=== PATIENT | male | born 1955 | race Caucasian/White ===

== ENCOUNTER → 2016-10-28 | Outpatient (CLI) | payer BC, OTHER | LOC: RT 13:22 | PROVIDERS: ATTEND Internal Medicine | DX: R06.02 Shortness of breath (principal) ==

== ENCOUNTER 2016-11-11 16:35 | Inpatient (IN) | payer BC, OTHER ==
[2016-11-11] MEDS ORDERED: Sodium Chloride 0.9% 1,000 ML PRIMARY IV ONE (16:45)
[2016-11-11] MEDS ORDERED: NORMAL SALINE 10 ML SYRINGE FLUSH IVP PRN (16:45)
[2016-11-11 17:17] LABS: BASOPHILS # (AUTO) 0.02 10*3/UL; BASOPHILS % (AUTO) 0.2 % (0-1); EOSINOPHILS % (AUTO) 0.5 % (0-8); HEMATOCRIT 35.2 % (42.0-52.0); HEMOGLOBIN 10.9 g/dL (14.0-18.0); IMM GRAN % (AUTO) 0.4 % (0-5); IMM GRAN# (AUTO) 0.04 10*3/UL; LYMPHOCYTES # (AUTO) 1.11 10*3/uL; MEAN PLATELET VOLUME 9.1 FL (7.4-12.2); MONOCYTES # (AUTO) 0.74 10*3/UL (0.3-0.8); NEUTROPHILS # (AUTO) 7.27 10*3/UL; NEUTROPHILS % (AUTO) 78.9 % (50-80); RED BLOOD COUNT 3.63 10^6/uL (4.70-6.10); WHITE BLOOD COUNT 9.23 10^3/uL (4.8-10.8)
[2016-11-11 17:19] LABS: PLATELET MORPHOLOGY COMMENT NORMAL MORPHOLOGY (NORM)
[2016-11-11 17:32] LABS: ASPARTATE AMINO TRANSFERASE 43 IU/L (21-57); BILIRUBIN,TOTAL 0.4 mg/dL (0.3-1.2); BLOOD UREA NITROGEN 21 mg/dL (7-22); C-REACTIVE PROTEIN 1.5 mg/dL (0.0-0.9); CALCIUM 9.3 mg/dL (8.7-10.7); CHLORIDE 94 meq/L (98-112); CREATININE 0.6 mg/dL (0.70-1.50); EST GLOMERULAR FILTRATION > 60 (>60 ml/min/1.73m(2)); GLUCOSE 120 mg/dL (78-110); POTASSIUM 4.2 meq/L (3.8-5.2); SODIUM 136 meq/L (135-145); TOTAL PROTEIN 6.7 g/dL (6.1-8.0)
--- NOTE | 2016-11-11 18:17 | DI ---
AP CHEST X-RAY, 11/11/2016 4:45 PM : Clinical History: Cough. Hypoxia. Previous Exam: 09/09/2016. On this projection, the patient took a shallow inspiration. There is no acute soft tissue or bony abn ormality. Heart size is normal for this projection and inspiratory effort. There is some atelectasis in the left lower lobe. The patient is status post partial right lobectomy with shift of the mediasti num from left to right and with compensatory hyperinflation of the left lung. There is increased dens ity behind the right heart but this is felt to be secondary to the slight rotation of the patient so that he is facing toward the right side and the densities represent the lower lobe vessels. There has been no significant interval change. Readin. No acute infiltrate or effusion is present. 2. Status post partial right lobectomy with compensatory hyperinflation of the left lung.
[2016-11-11] MEDS ORDERED: methylPREDNISolone 125 MG/2 ML VIAL IVP ONE (18:22)
[2016-11-11] MEDS ORDERED: Levofloxacin 750mg (Premix) 750 MG in Dextrose 1 BAG IV ONE (18:22)
[2016-11-11] MEDS ORDERED: IBUPROFEN 800 MG TABLET PO PRN (18:57)
[2016-11-11] MEDS ORDERED: LET SOLUTION 40MG/0.5MG/5MG/ML - 3 ML TOPICAL PRN (18:57)
[2016-11-11] MEDS ORDERED: ONDANSETRON 4 MG/2 ML VIAL IVP PRN (18:57)
[2016-11-11] MEDS ORDERED: IPRATROPIUM/ALBUTEROL SULFATE 3 ML NEB NEB PRN (18:57)
[2016-11-11] MEDS ORDERED: ALBUTEROL SULFATE 2.5 MG/3 ML NEB PRN ×2 (18:57→20:13)
--- NOTE | 2016-11-11 19:36 | PDOC ---
Dyspnea HPI - General Chief Complaint: Respiratory Complaint Stated Complaint: INCREASED SHORTNESS OF BREATH/COUGH x3 DAYS Date Seen by Provider: 11/11/16 Time Seen by Provider: 16:40 Source: POSITIVE: Patient Exam Limitations: POSITIVE: No limitations Treatment Prior to Arrival: REPORTS: Oxygen, Other (Duo neb at home one hour prior to arrival) Nurse's Notes Reviewed & Considered: Yes - History of Present Illness Initial Comments: The patient is a 61-year-old male with a history of COPD as well as history of lung cancer who presents to the emergency department with increased shortness of breath. He is on 4 L baseline oxygen at home. His oxygen saturations a past couple of days have been low with even minimal activity or talking. He reports increase shortness of breath worsening over the past couple of weeks and particularly worse over the past for 5 days. He also has had increase in productive cough which is productive of brownish colored phlegm. He has associated general malaise although he denies any specific fevers or chills. He is not have any chest pain, increased edema or any other associated complaints. He is on baseline prednisone of 20 mg a day and attempts to wean lower have not been successful. In addition he does take Zithromax as a prophylactic antibiotic every other day. - Patient Home Medications Home Medications: Home Medications Ibuprofen [Motrin] 800 mg PO TID PRN 03/21/11 Multivitamin [Multi-Day Vitamins] 1 each PO DAILY 04/25/11 Bupropion HCl [Wellbutrin Sr] 150 mg ORAL BID tab 06/04/11 Gabapentin 300 mg PO BID 09/17/11 Methadone HCl 5 mg PO BID 09/17/11 Oxycodone HCl 20 mg ORAL q four hours tab 09/17/11 Oxycodone HCl [Oxycontin] 30 mg PO BID 09/17/11 Celecoxib [Celebrex] 200 mg PO DAILY 07/20/15 Albuterol Sulfate [Proair Hfa] 1 - 2 puff INH Q4-6H PRN #3 inhaler 02/13/16 Budesonide/Formoterol Fumarate [Symbicort] 2 puff INH BID #3 inh 02/13/16 Tiotropium [place] [Spiriva] 1 puff INH DAILY inh 04/28/16 Furosemide 1 tab PO q mid AM #90 tab 05/25/16 Lidocaine HCl [Lidocaine Hcl Viscous] 15 ml PO Q4H PRN #3 ml 05/25/16 Ondansetron HCl [Zofran] 1 tab PO Q8H PRN #30 tab 05/25/16 Albuterol/Ipratrop Neb Soln [Duoneb Neb Soln] 1 vial INH Q4-6HRSPRN #120 box Omeprazole 1 cap PO BID #60 cap 10/26/16 Fluoxetine HCl [Prozac] 1 cap ORAL QD #0 capsule 10/27/16 Venlafaxine HCl [Venlafaxine Hcl Er] 1 tab PO DAILY #0 cap 10/27/16 predniSONE Tab [Deltasone Tab] 2 tab PO DAILY #60 tab 10/29/16 Potassium Chloride 1 tab PO q mid AM #90 tab 11/06/16 - Patient Allergies Allergies/Adverse Reactions: Allergies Allergy/AdvReac Type Severity Reaction Status Date / Time Benzodiazepines Allergy Intermediate NOT Verified 11/11/16 17:02 APPLICABLE cyclobenzaprine HCl AdvReac Intermediate HALLUCINATI Verified 11/11/16 17:02 [From Flexeril] ONS pregabalin [From Lyrica] AdvReac Intermediate SWELLING Verified 11/11/16 17:02 Past Medical History - heen HEENT History: Denies History, Hard of Hearing, Chipped or Loose Teeth Cardiovascular History: Hypertension, Hyperlipidemia Respiratory History: Asthma, COPD, Shortness of Breath, Sleep Apnea, Home CPAP Use, Snoring, Other (please comment) Additional Respiratory History: 3L O2 WITH CPAP. LUNG CANCER RIGHT UPPER LOBE, RIGHT UPPER LOBECTOMY Gastrointestinal History: GERD, Other (please comment) Additional Gastrointestinal History: BARRETTS ESOPHAGUS Genitourinary History: Denies History Endocrine History: Denies History Musculoskeletal History: Back Pain, Back Injury, Muscle Weakness, Paralysis Prosthesis or Implant: Yes (HARDWARE IN BACK SPINAL STIMULATOR L BUTTOCK) Additional Musculoskeletal History: HAS NUMBNESS WEAKNESS IN R LEG AND FOOT / DROP FOOT RIGHT SIDE, DUE TO BACK SURGERY Neurological History: Denies History Blood Disorders: Denies History Psychiatric History: Depression, Anxiety Disorders, PTSD Additional Psychiatric History: HX ALCOHOLISM History of Sexually Transmitted Diseases: No Cancer History: Lung Cancer Treatment / Date(s) of Treatment: R UPPER LOBECTOMY WITH 4 CHEMO TX'S In Past Year Been Physically Harmed or Verbally Threatened: No History of MDRO: No History of Other Communicable Diseases: No Tobacco Use: Former Smoker Alcohol Use: Sober Substance Use Type: None Previous Surgical History: Yes Type / Date of Surgery: LAMINECTOMY/R UPPER LOBECTOMY/VERTEBRAL FUSION/3 NECK FUSIONS/TONSILS/KAUSHIK/BILAT KNEE SCOPES Anesthesia Reactions: Yes (HYPOTENSIVE) Malignant Hyperthermia: No Significant Family History: Asthma, COPD, Lung disease, Vascular disease Past Medical History Reviewed: Reviewed - No Changes ROS - Limitations ROS Limitations: No Limitations Constitution: DENIES: Chills, Fever Cardiovascular: REPORTS: Denies Cardiac Symptoms Respiratory: REPORTS: Cough Productive, Shortness Of Breath, Wheezing Neurological: REPORTS: Denies Neuro Symptoms Gastrointestinal: REPORTS: Denies GI Symptoms, Other (He does report recent increase in difficulty swallowing, he also does have a history of aspiration of thin liquids on previous evaluations here in the hospital) Musculoskeletal: REPORTS: Denies MS Symptoms Eyes: REPORTS: Denies Symptoms ENT: REPORTS: Denies Symptoms Skin: DENIES: Rash Dyspnea Physical Exam - General Appearance General Appearance: REPORTS: Alert, Cooperative, No Acute Distress, Anxious - HEENT HEENT: POSITIVE: Head Inspection Nml, Eyes Inspection Nml, Ears Inspection Nml, Nose Inspection Nml, PERRL, EOMI - Respiratory Respiratory: REPORTS: Other (The patient has tachypnea with increased work of breathing on arrival, he has to take breaks to breathe when talking, his breath sounds are diminished bilaterally) - Cardiovascular Cardiovascular: REPORTS: Regular Rate and Rhythm, Heart Sounds Normal Peripheral Pulses: Dorsalis-pedis (R): 2+, Dorsalis-pedis (L): 2+ - Abdomen Abdomen: Soft: (All Quadrants), Denies Tenderness: (All Quadrants), No Distention: (All Quadrants) - Skin Skin: REPORTS: Intact, No Rash - Extremities Extremity: Normal ROM: (All Extremities), Normal Inspection: (All Extremities) - Neurological / Psychological Neurological: POSITIVE: Other (Patient has extrapyramidal motor movements, no focal neurologic deficits) Dyspnea Progress - Results Reviewed by me Xrays/CTs/US Reviewed by me: Yes Discussed with Radiologist: Yes Radiology Findings: Patient has chronic findings on his chest x-ray which do not appear significantly different than previous per radiology reading. Lab Results Reviewed: Yes Lab Results:: Laboratory Results 11/11/16 11/11/16 Range/Units 17:07 17:20 WBC 9.23 (4.8-10.8) 10^3/uL RBC 3.63 L (4.70-6.10) 10^6/uL Hgb 10.9 L (14.0-18.0) g/dL Hct 35.2 L (42.0-52.0) % MCV 97.0 H (80-90) FL MCH 30.0 (27-31) PG MCHC 31.0 L (33-37) g/dL RDW Std Deviation 51.4 H (39-50) fL RDW Coeff of Yumiko 15.0 H (11.5-14.5) % Plt Count 329 (140-350) 10*3/uL MPV 9.1 (7.4-12.2) FL Immature Gran % (Auto) 0.4 (0-5) % Neut % (Auto) 78.9 (50-80) % Lymph % (Auto) 12.0 (10-50) % [place] % (Auto) 8.0 (5-15) % Eos % (Auto) 0.5 (0-8) % Baso % (Auto) 0.2 (0-1) % Immature Gran # (Auto) 0.04 10*3/UL Neut # (Auto) 7.27 10*3/UL Lymph # (Auto) 1.11 10*3/uL [place] # (Auto) 0.74 (0.3-0.8) 10*3/UL Eos # (Auto) 0.05 10*3/UL Baso # (Auto) 0.02 10*3/UL WBC Morphology Comment Normal morphology (NORM) Plt Morphology Comment Normal morphology (NORM) RBC Morph Comment Normal morphology (NORM) VBG pH 7.52 H (7.32-7.42) VBG pCO2 36 L (45-55) mmHg VBG HCO3 30 H (22-26) mmol/L VBG Base Excess 7 H (-2-2) MMOL/L Sodium 136 (135-145) meq/L Potassium 4.2 (3.8-5.2) meq/L Chloride 94 L (98-112) meq/L Carbon Dioxide 34 H (23-33) meq/L Anion Gap 8 (5-20) BUN 21 (7-22) mg/dL Creatinine 0.6 L (0.70-1.50) mg/dL Estimated GFR > 60 (>60 ml/min/1.73m(2)) BUN/Creatinine Ratio 35.00 H (6-20) Glucose 120 H (78-110) mg/dL Calculated Osmolality 285.0 (267-292) mOsm/kg Lactic Acid 1.0 (0.70-2.10) MMOL/L Calcium 9.3 (8.7-10.7) mg/dL Magnesium 2.0 (1.6-2.4) mg/dL Total Bilirubin 0.4 (0.3-1.2) mg/dL AST 43 (21-57) IU/L ALT 44 (21-72) IU/L Alkaline Phosphatase 108 (38-126) IU/L C-Reactive Protein 1.5 H (0.0-0.9) mg/dL NT-Pro-B Natriuret Pep 105 (0-125) PG/ML Total Protein 6.7 (6.1-8.0) g/dL Albumin 3.9 (3.5-4.8) g/dL Globulin 2.8 (2.50-4.10) g/dL Albumin/Globulin Ratio 1.30 (1.3-2.0) mg/g - Patient's Progress MDM / ED Course: Blood cultures and lactate were drawn with initial blood draw. His chest x-ray shows no obvious acute infiltrate per radiology although is significantly abnormal at baseline making it difficult to interpret. Clinically he appears to have COPD exacerbation and likely some degree of aspiration pneumonitis or pneumonia. These findings are discussed with the patient. He is very fragile secondary to his chronic lung condition. He is very symptomatic and oxygen saturations drop with even minimal activity. Decision was made to admit the patient for treatment initially. He was started on Levaquin and Solu-Medrol after discussion with Dr. Everett. These findings and recommendations were discussed with the patient and his . He is in agreement with this plan. - Consult Counseled: POSITIVE: Patient, Family, RE: Lab Results, RE: Radiology Results, RE : DX, RE: Need for F/U Patient Care Time - Estimated PCT Patient Care Time (In Minutes): 40 Vital Signs - Recent Vital Signs Vital Signs: Vital Signs (Last 8 hours) Temp Pulse Pulse Resp BP BP Pulse Ox 11/11/16 18:55 97.1 F 100 18 145/90 96 11/11/16 16:48 94 11/11/16 16:35 97.9 F 110 H 32 H 145/90 82 - VS Reviewed Vital Signs Reviewed: Yes Discharge Clinical Impression: COPD exacerbation, Aspiration into respiratory tract Discharge Disposition: Admit to Inpatient Condition: Fair Date Decision to Admit to Inpatient: 11/11/16 Time Decision to Admit to Inpatient: 18:30
[2016-11-11] MEDS ORDERED: Levofloxacin 750mg (Premix) 750 MG in Dextrose 1 BAG IV SCH (20:00)
--- NOTE | 2016-11-11 20:04 | PDOC ---
History and Physical - History of Present Illness Date and Time of Service: 11/11/2016, 2001 Chief Complaint: Shortness of breath History of Present Illness: This is a 61-year-old male with chronic pain syndrome, failed back syndrome, end -stage COPD, and history of lung cancer with a partial lung resection who presents accompanied by his juliocesar with complaints of shortness of breath. When he last saw his primary care provider he had the same complaints and a plan was laid out to do a chest CT scan and a trial of flutter valve along with incentive spirometer. The patient states that over the last 2 weeks it's been progressively getting worse despite increased breathing therapies in the last 4 days he's actually lost his voice. He thinks he may have aspirated. He has had extensive workup in the past that has shown aspiration. He states that in particular pills are very difficult to swallow now. He does not recall an esophageal stricture. He has known Brice's esophagitis, and states that he generally has an EGD every 3-5 years or so and he states it's been about 5 years so he feels like he might be due for that study here soon. Nothing seemed to be making a much better, and the last time he saw his pulmonary provider at [facility], they recommended that he get in for evaluation for hospitalization anytime he developed a cough. He tried to wait it out over the last 4 days but developed a significant cough today, nonproductive, no carotid for further evaluation. He is normally on 4 L per nasal cannula and he is on that but still feels quite short of breath, and more so than is normal. No fevers, no chills, no chest pain. Past Medical History Medical History: 1. History of lung cancer status post right upper lobe lobectomy and chemotherapy. 2. COPD, this is end-stage. 3. Depression with anxiety, on multiple antidepressants including Effexor, Prozac, and Wellbutrin. 4. Chronic pain syndrome related to failed back syndrome. 5. Right lower extremity foot drop, with chronic right great toe plantar stage IV ulcer, present on admission. 6. Brice's Esophagitis. 7. Steroid dependence Surgical History: 1. Bilateral knee scopes. 2. Bilateral shoulder stones. 3. Right upper lobe lobectomy. 4. Tonsillectomy. 5. Cholecystectomy. 6. Failed back which 3 surgeries in the past Pertinent Family History: Patient denies any diabetes or heart disease in the family. Past Social History: Patient used to smoke, but quit 6 years ago. Quit drinking alcohol in the past. . Has 2 children. 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 Tobacco Use: Former Smoker Substance Use Type: None Alcohol Use: None Medication / Allergies Home Medications: Home Medications Medication Instructions Recorded Confirmed Type Ibuprofen [Motrin] 800 mg PO TID PRN 03/21/11 11/11/16 History Multivitamin [Multi-Day Vitamins] 1 each PO DAILY 04/25/11 11/11/16 History Bupropion HCl [Wellbutrin Sr] 150 mg ORAL BID tab 06/04/11 11/11/16 History Gabapentin 300 mg PO BID 09/17/11 11/11/16 History Methadone HCl 5 mg PO BID 09/17/11 11/11/16 History Oxycodone HCl 20 mg ORAL q four hours tab 09/17/11 11/11/16 History Oxycodone HCl [Oxycontin] 30 mg PO BID 09/17/11 11/11/16 History Celecoxib [Celebrex] 200 mg PO DAILY 07/20/15 11/11/16 History Albuterol Sulfate [Proair Hfa] 1 - 2 puff INH Q4-6H PRN #3 inhaler 02/13/1610/27 Clinic Budesonide/Formoterol Fumarate 2 puff INH BID #3 inh 02/13/16 11/11/16 Clinic [Symbicort] Tiotropium [place] [Spiriva] 1 puff INH DAILY inh 04/28/16 11/11/16 History Furosemide 1 tab PO q mid AM #90 tab 05/25/16 11/11/16 Clinic Lidocaine HCl [Lidocaine Hcl 15 ml PO Q4H PRN #3 ml 05/25/16 11/11/16 Clinic Viscous] Ondansetron HCl [Zofran] 1 tab PO Q8H PRN #30 tab 05/25/16 11/11/16 Clinic Albuterol/Ipratrop Neb Soln 1 vial INH Q4-6HRSPRN #120 box 08/05/16 11/11/16 Clinic [Duoneb Neb Soln] Omeprazole 1 cap PO BID #60 cap 10/26/16 11/11/16 Clinic Fluoxetine HCl [Prozac] 1 cap ORAL QD #0 capsule 10/27/16 11/11/16 [facility] Venlafaxine HCl [Venlafaxine Hcl 1 tab PO DAILY #0 cap 10/27/16 11/11/16 Clinic Er] predniSONE Tab [Deltasone Tab] 2 tab PO DAILY #60 tab 10/29/16 11/11/16 [facility] Potassium Chloride 1 tab PO q mid AM #90 tab 11/06/16 11/11/16 [facility] Allergies/Adverse Reactions: Allergies Allergy/AdvReac Type Severity Reaction Status Date / Time Benzodiazepines Allergy Intermediate NOT Verified 11/11/16 17:02 APPLICABLE cyclobenzaprine HCl AdvReac Intermediate HALLUCINATI Verified 11/11/16 17:02 [From Flexeril] ONS pregabalin [From Lyrica] AdvReac Intermediate SWELLING Verified 11/11/16 17:02 Review of Systems - Review of Systems All Systems: Reviewed & No Additional Complaints Except as Stated (I did a 12 point review systems and it was negative other than that discussed in the history of present illness and that noted below.) - Constitutional Constitutional: REPORTS: General Health Poor - Respiratory Respiratory: REPORTS: Cough, Dyspnea At Rest, Dyspnea with Exertion, See HPI - Cardiovascular Cardiovascular: REPORTS: Other (States that he had symptoms of congestive heart failure in the past and they thought about getting a repeat echocardiogram. Currently does not have symptoms of congestive heart failure. No edema and no swelling.) - Neurological Neurologic: REPORTS: Difficulty Walking (Chronic antalgic gait. This is related to the foot drop. He states that he falls frequently as he just doesn' t know where his right foot is in space. He fractured 4 ribs in the end of August with a fall.), Other - Psychiatric Psychiatric: REPORTS: Anxiety (Had recent changes in his medications to try and help control this better.), Depressed Exam - Vitals Vital Signs: Vital Signs Temperature 97.1 F Temperature Source Temporal Artery Scan Pulse Rate 100 Respiratory Rate 18 Blood Pressure 145/90 Pulse Ox 96 On 4 L per nasal cannula - General General Appearance: POSITIVE: No Acute Distress, Cooperative - Head Head Exam: POSITIVE: Normal Inspection, Normocephalic, Atraumatic - Eye Eye Exam: POSITIVE: No Scleral Icterus - Neck Neck Exam: POSITIVE: Normal Inspection - Respiratory Respiratory Exam: POSITIVE: Breathing Non Labored, Decreased Breath Sounds ( Shallow inspirations with very diminished expiratory breath sounds. Not labored ) - Cardiovascular Cardiovascular Exam: POSITIVE: RRR, No Murmur, No Clicks, No Gallops, No Rubs, No JVD - GI/Abdominal GI/Abdominal Exam: POSITIVE: Normal Bowel Sounds, Non Tender, Non Distended, Soft - Rectal Rectal Exam: POSITIVE: Deferred - External Exam: POSITIVE: Deferred Exam: POSITIVE: Deferred - Extremities Extremities Exam: POSITIVE: No Edema Present, No Cyanosis Present, Clubbing Present - Back Back Exam: POSITIVE: No CVA Tenderness Additional Back Exam Details: Scars from prior back surgeries - Neurological Neurological Exam: POSITIVE: Alert, Oriented x 3, No Facial Droop, Speech Intact / Clear, Abnormal Gait - Psychiatric Psychiatric Exam: POSITIVE: Anxious - Integumentary Integumentary Exam: POSITIVE: Warm, Dry, Intact Results - Labs CBC and BMP: 11/11/16 17:07 11/11/16 17:07 Labs - Last 24 Hours: Laboratory Results 11/11/16 11/11/16 Range/Units 17:07 17:20 WBC 9.23 (4.8-10.8) 10^3/uL RBC 3.63 L (4.70-6.10) 10^6/uL Hgb 10.9 L (14.0-18.0) g/dL Hct 35.2 L (42.0-52.0) % MCV 97.0 H (80-90) FL MCH 30.0 (27-31) PG MCHC 31.0 L (33-37) g/dL RDW Std Deviation 51.4 H (39-50) fL RDW Coeff of Yumiko 15.0 H (11.5-14.5) % Plt Count 329 (140-350) 10*3/uL MPV 9.1 (7.4-12.2) FL Immature Gran % (Auto) 0.4 (0-5) % Neut % (Auto) 78.9 (50-80) % Lymph % (Auto) 12.0 (10-50) % [place] % (Auto) 8.0 (5-15) % Eos % (Auto) 0.5 (0-8) % Baso % (Auto) 0.2 (0-1) % Immature Gran # (Auto) 0.04 10*3/UL Neut # (Auto) 7.27 10*3/UL Lymph # (Auto) 1.11 10*3/uL [place] # (Auto) 0.74 (0.3-0.8) 10*3/UL Eos # (Auto) 0.05 10*3/UL Baso # (Auto) 0.02 10*3/UL WBC Morphology Comment Normal morphology (NORM) Plt Morphology Comment Normal morphology (NORM) RBC Morph Comment Normal morphology (NORM) VBG pH 7.52 H (7.32-7.42) VBG pCO2 36 L (45-55) mmHg VBG HCO3 30 H (22-26) mmol/L VBG Base Excess 7 H (-2-2) MMOL/L Sodium 136 (135-145) meq/L Potassium 4.2 (3.8-5.2) meq/L Chloride 94 L (98-112) meq/L Carbon Dioxide 34 H (23-33) meq/L Anion Gap 8 (5-20) BUN 21 (7-22) mg/dL Creatinine 0.6 L (0.70-1.50) mg/dL Estimated GFR > 60 (>60 ml/min/1.73m(2)) BUN/Creatinine Ratio 35.00 H (6-20) Glucose 120 H (78-110) mg/dL Calculated Osmolality 285.0 (267-292) mOsm/kg Lactic Acid 1.0 (0.70-2.10) MMOL/L Calcium 9.3 (8.7-10.7) mg/dL Magnesium 2.0 (1.6-2.4) mg/dL Total Bilirubin 0.4 (0.3-1.2) mg/dL AST 43 (21-57) IU/L ALT 44 (21-72) IU/L Alkaline Phosphatase 108 (38-126) IU/L C-Reactive Protein 1.5 H (0.0-0.9) mg/dL NT-Pro-B Natriuret Pep 105 (0-125) PG/ML Total Protein 6.7 (6.1-8.0) g/dL Albumin 3.9 (3.5-4.8) g/dL Globulin 2.8 (2.50-4.10) g/dL Albumin/Globulin Ratio 1.30 (1.3-2.0) mg/g - Imaging Status: Image Reviewed by Me (I reviewed the chest x-ray. It's difficult to see any infiltrate here. But there is scarring from prior surgeries and lobectomy in the past.) Assessment and Plan - Patient Problems (1) Aspiration pneumonia Current Visit: Yes Status: Acute Qualifiers: Aspiration pneumonia type: unspecified Laterality: unspecified laterality Lung location: unspecified part of lung Qualified Description : Aspiration pneumonia, unspecified aspiration pneumonia type, unspecified laterality, unspecified part of lung Qualifier Code(s): (J69.0) Pneumonitis due to inhalation of food and vomit (2) COPD exacerbation Current Visit: Yes Status: Acute (3) Brice's esophagus with esophagitis Current Visit: No Status: Chronic (4) Chronic pain syndrome Current Visit: No Status: Chronic (5) Depression with anxiety Current Visit: No Status: Chronic (6) Fall Current Visit: No Status: Acute Qualifiers: Encounter type: initial encounter Qualified Description: Fall, initial encounter Qualifier Code(s): (W19.XXXA) Unspecified fall, initial encounter - Assessment / Plan Additional Assessment/Plan Details: Admit the patient. Flagyl and Levaquin for pneumonia coverage with aspiration pneumonia. Blood cultures and been drawn and are pending. Patient had the flu shot this year, and he's had Pneumovax in the past but stated that he is ready for his second shot which we will provide here. Breathing therapies every 4 hours. When necessary more frequently than that as necessary. Solu-Medrol. Continue home pain medications and may need to add additional pain medications. In the past during hospital stays, the patient has significant increase in his pain. Oxygen as necessary. If the patient does not improve in the next 3-4 days, I think we should make sure that the patient has not had a PE but I doubt that. I think this is all COPD exacerbation. I will keep him on DVT prophylaxis therapy here with Lovenox daily. Patient is DO NOT RESUSCITATE, DO NOT INTUBATE. Plan above discussed with patient and his and they agree.
[2016-11-11] MEDS ORDERED: HYDROmorphone 2 MG/1 ML IVP PRN ×2 (20:13→23:38)
[2016-11-11] MEDS: metroNIDAZOLE 500mg (Premix) 500 MG in Premix 1 BAG IV SCH (20:28)
[2016-11-11] MEDS: methylPREDNISolone 125 MG/2 ML VIAL IVP SCH (20:29)
[2016-11-11] MEDS: oxyCODONE IR Tab 5 MG TAB PO SCH (20:30)
[2016-11-11] MEDS: oxyCODONE IR Tab 15 MG TAB PO SCH (20:30)
[2016-11-11] MEDS ORDERED: oxyCODONE ER 10 MG TAB PO SCH (21:00)
[2016-11-11] MEDS ORDERED: oxyCODONE ER Tab 20 MG TAB PO SCH (21:00)
[2016-11-11] MEDS: METHADONE 5 MG PO SCH (21:25)
[2016-11-11] MEDS: GABAPENTIN 300 MG CAPSULE PO SCH (21:26)
[2016-11-11] MEDS ORDERED: Pneumococcal Vacc 13 Syringe 0.5 ML DISP.SYRIN IM SCH (21:30)
[2016-11-11] MEDS: OMEPRAZOLE 20 MG CAPSULE PO SCH (21:31)
[2016-11-11] MEDS: BuPROPion SR Tab 150 MG TAB PO SCH (21:31)
--- NOTE | 2016-11-11 21:40 | DI ---
HISTORY: Shortness of breath with frequent pneumonia and COPD. COMPARISON: Report from 07/20/2015 and 10/16/2015. TECHNIQUE: A noncontrast CT examination of the chest was performed. Images were presented in the ax ial, coronal and sagittal plane. FINDINGS: LUNGS: There is a mild scar within the lungs; right greater than left. There is no consolidation, p leural effusion or pneumothorax. There are mild to moderate emphysematous changes seen within the ernie ng apices. The airway is patent without filling defects. MEDIASTINUM: There is calcified coronary artery disease. There are no pathologically enlarged media stinal lymph nodes. The heart and great vessels are otherwise unremarkable within the limitations of this noncontrast examination. UPPER ABDOMEN: The patient is status post cholecystectomy. There is a 2 cm cortically placed lesion in the superior pole of the left kidney which measures 40 Hounsfield units and is not consistent wit h a simple cyst. MUSCULOSKELETAL/SOFT TISSUE: There is bilateral gynecomastia. There are unhealed bilateral rib frac tures which appear chronic. There are metallic leads within the thoracic spine at the level of T2. There are compression deformities at the T7 through T9. IMPRESSION: 1. There is no consolidation, pleural effusion or pneumothorax. 2. There is a 2 cm cortically based left renal lesion which is incompletely evaluated. Dedicated shamika luation of this lesion is recommended with CT or MRI with contrast if this has not been performed.
[2016-11-11] MEDS: BUDESONIDE INH SCH (22:12)
[2016-11-11] MEDS: FORMOTEROL FUMARATE INH SCH (22:12)
[2016-11-11] MEDS: IPRATROPIUM/ALBUTEROL SULFATE 3 ML NEB NEB SCH (23:29)
[2016-11-12] MEDS: oxyCODONE IR Tab 5 MG TAB PO SCH ×3 (00:42→07:28)
[2016-11-12] MEDS: oxyCODONE IR Tab 15 MG TAB PO SCH ×3 (00:42→07:28)
[2016-11-12] MEDS: metroNIDAZOLE 500mg (Premix) 500 MG in Premix 1 BAG IV SCH ×2 (03:07→11:25)
[2016-11-12] MEDS: methylPREDNISolone 125 MG/2 ML VIAL IVP SCH ×4 (03:07→20:57)
[2016-11-12] MEDS: IPRATROPIUM/ALBUTEROL SULFATE 3 ML NEB NEB SCH ×6 (03:19→22:39)
[2016-11-12 05:36] LABS: BASOPHILS # (AUTO) 0.01 10*3/UL; BASOPHILS % (AUTO) 0.1 % (0-1); EOSINOPHILS % (AUTO) 0 % (0-8); HEMATOCRIT 34.6 % (42.0-52.0); HEMOGLOBIN 11.2 g/dL (14.0-18.0); IMM GRAN % (AUTO) 0.3 % (0-5); IMM GRAN# (AUTO) 0.02 10*3/UL; LYMPHOCYTES # (AUTO) 0.24 10*3/uL; LYMPHOCYTES % (AUTO) 3.2 % (10-50); MEAN CORPUSCULAR HEMOGLOBIN 30.6 PG (27-31); MEAN CORPUSCULAR HGB CONC 32.4 g/dL (33-37); MONOCYTES # (AUTO) 0.05 10*3/UL (0.3-0.8); MONOCYTES % (AUTO) 0.7 % (5-15); NEUTROPHILS # (AUTO) 7.24 10*3/UL; NEUTROPHILS % (AUTO) 95.7 % (50-80); RDW COEFFICIENT OF VARIATION 14.8 % (11.5-14.5); RED BLOOD COUNT 3.66 10^6/uL (4.70-6.10); WHITE BLOOD COUNT 7.56 10^3/uL (4.8-10.8)
[2016-11-12 05:40] LABS: PLATELET MORPHOLOGY COMMENT NORMAL MORPHOLOGY (NORM)
[2016-11-12 05:48] LABS: HEMOGLOBIN A1C 5.59 % (4.2-6.0); MEAN BLOOD GLUCOSE (CALC) 100.147 mg/dL
[2016-11-12 05:56] LABS: BLOOD UREA NITROGEN 18 mg/dL (7-22); CALCIUM 9.5 mg/dL (8.7-10.7); CHLORIDE 98 meq/L (98-112); CREATININE 0.5 mg/dL (0.70-1.50); EST GLOMERULAR FILTRATION > 60 (>60 ml/min/1.73m(2)); GLUCOSE 137 mg/dL (78-110); POTASSIUM 4.3 meq/L (3.8-5.2); SODIUM 135 meq/L (135-145)
[2016-11-12 06:05] LABS: NT-PRO BNP 236 PG/ML (0-125)
[2016-11-12] MEDS: oxyCODONE IR Tab 15 MG, oxyCODONE IR Tab 5 MG PO SCH ×8 (08:24→21:00)
[2016-11-12] MEDS ORDERED: CELECOXIB 200 MG CAPSULE PO SCH (09:00)
[2016-11-12] MEDS ORDERED: VENLAFAXINE HCL PO SCH (09:00)
[2016-11-12] MEDS ORDERED: VENLAFAXINE XR 75 MG CAP PO SCH (09:00)
[2016-11-12] MEDS: METHADONE 5 MG PO SCH ×2 (09:10→21:01)
[2016-11-12] MEDS: OXYCODONE PO SCH ×4 (09:10→21:02)
[2016-11-12] MEDS: BuPROPion SR Tab 150 MG TAB PO SCH ×2 (09:11→21:00)
[2016-11-12] MEDS: OMEPRAZOLE 20 MG CAPSULE PO SCH ×2 (09:11→21:03)
[2016-11-12] MEDS: POTASSIUM CHLORIDE 20 MEQ TAB PO SCH (09:12)
[2016-11-12] MEDS: FUROSEMIDE 40 MG TABLET PO SCH (09:12)
[2016-11-12] MEDS: GABAPENTIN 300 MG CAPSULE PO SCH ×2 (09:12→20:59)
[2016-11-12] MEDS: FLUoxetine 20 MG CAPSULE PO SCH (09:12)
[2016-11-12] MEDS: TIOTROPIUM BROMIDE 18 MCG CAPSULE INH SCH (09:58)
[2016-11-12] MEDS: FORMOTEROL FUMARATE INH SCH ×3 (10:02→21:10)
[2016-11-12] MEDS: BUDESONIDE INH SCH ×3 (10:02→21:10)
[2016-11-12] MEDS: VENLAFAXINE XR 37.5 MG CAP PO SCH ×2 (10:04→20:59)
[2016-11-12] MEDS ORDERED: ERGOCALCIFEROL 50,000 IU CAPSULE PO ONE (10:59)
[2016-11-12] MEDS ORDERED: ERGOCALCIFEROL 50,000 IU CAPSULE PO SCH (11:00)
--- NOTE | 2016-11-12 11:05 | DI ---
CT ABDOMEN SCAN WITHOUT AND WITH IV CONTRAST, 11/12/2016 7:00 AM : Clinical History: CT scan of the chest revealed an abnormality of the left kidney. There is a left re nal mass that is increasing in size. Previous Exam: 02/29/2008; 08/21/2011; 10/18/2015. Scans are performed from the lower lung bases through the liver and kidneys without and with IV contr ast. Sagittal and coronal images are generated. 70 ml of Isovue 300 was injected IV. Scans of the kid neys were obtained during the arterial phase and the portal venous phase following contrast. The lung bases are clear. The liver is normal. The patient is status post cholecystectomy. Both adren al glands and the spleen are normal. The pancreas is atrophic but otherwise normal. Both kidneys are normal in size, shape, and position, and the right kidney has a normal contour. The left kidney has a previously identified cystic lesion in the mid zone region. This patient has been scanned on 3 diffe rent scanners and the lesion of the left kidney has always had the same configuration. The current di mensions are 15 x 16 x 18 mm in the lesion on the 2007 study measured approximately 14 x 15 x 17 mm. The density precontrast has ranged between 35-40 CT Hounsfield units. On the current exam it measures approximately 38 CT Hounsfield units with a standard deviation of plus or minus, 10 units. Following contrast administration, the lesion maintains the same density in the arterial phase and during the portal venous phase. This lesion is consistent with a benign cyst that is filled with proteinaceous d ebris as opposed to a solid lesion. There is no hydronephrosis or hydroureter. No renal or ureteral c alculi are present. There are no abnormal retrocrural or periaortic nodes. There is no ascites. READIN. The nodule on the cortex of the left kidney may have increased slightly in size since 2007, but o nly by 1 mm in each dimension. In addition, the lesion has maintained its density in spite of being s canned on multiple CT scans. With IV contrast, there is no enhancement of the lesion and therefore th e lesion is consistent with a benign cyst filled with proteinaceous debris. 2. The remainder of the examination is normal. CT PELVIS SCAN WITHOUT AND WITH IV CONTRAST, 11/12/2016 7:00 AM: Clinical History: See above. Previous Exam: 02/29/2008; 10/18/2015. Scans are performed from just superior to the umbilicus to the symphysis pubis without and with IV co ntrast. This is the same bolus of IV contrast used for the CT scans of the abdomen. Scans through the lower abdomen and pelvis show no masses or abnormal fluid collections. There is no adenopathy. The appendix is normal. The small bowel, terminal ileum, and ileocecal valve are intact. The colon is also normal. There is a small umbilical hernia through which only mesenteric fat has he rniated. The patient has had extensive back surgery. READING: Normal CT scan of the pelvis.
[2016-11-12] MEDS: NORMAL SALINE 10 ML SYRINGE FLUSH IVP PRN ×3 (13:44→21:04)
--- NOTE | 2016-11-12 14:31 | PDOC(PROG) ---
Date and Time of Service: 11/12/2016, 1425 Interval History: Still feels short of breath, no real change overnight. No fevers, cough is present but not productive. Overall he felt like his pain control was not very good at all last night although he did knowledge that we tried by increasing his Dilaudid to 2 mg instead of 1. He really is hopeful for going home soon. I spoke to his , updated her, in the sense I get is that the patient's activities of daily living are slowing down. He is not able to do things that he is enjoyed such as the wash at home or cooking dinner due to shortness of breath. It takes him 2 hours to get dressed. He is not apt to leave the house. Appointments outside of the house take much longer to do. There is even some consideration of stem cell therapy for COPD. Objective : Data - Labs CBC and BMP: 11/12/16 05:26 11/12/16 05:26 Labs - Last 24 Hours: Laboratory Results 11/12/16 Range/Units 05:26 WBC 7.56 (4.8-10.8) 10^3/uL RBC 3.66 L (4.70-6.10) 10^6/uL Hgb 11.2 L (14.0-18.0) g/dL Hct 34.6 L (42.0-52.0) % MCV 94.5 H (80-90) FL MCH 30.6 (27-31) PG MCHC 32.4 L (33-37) g/dL RDW Std Deviation 49.0 (39-50) fL RDW Coeff of Yumiko 14.8 H (11.5-14.5) % Plt Count 280 (140-350) 10*3/uL MPV 9.0 (7.4-12.2) FL Immature Gran % (Auto) 0.3 (0-5) % Neut % (Auto) 95.7 H (50-80) % Lymph % (Auto) 3.2 L (10-50) % [place] % (Auto) 0.7 L (5-15) % Eos % (Auto) 0 (0-8) % Baso % (Auto) 0.1 (0-1) % Immature Gran # (Auto) 0.02 10*3/UL Neut # (Auto) 7.24 10*3/UL Lymph # (Auto) 0.24 10*3/uL [place] # (Auto) 0.05 L (0.3-0.8) 10*3/UL Eos # (Auto) 0 10*3/UL Baso # (Auto) 0.01 10*3/UL WBC Morphology Comment Normal morphology (NORM) Plt Morphology Comment Normal morphology (NORM) RBC Morph Comment Normal morphology (NORM) Sodium 135 (135-145) meq/L Potassium 4.3 (3.8-5.2) meq/L Chloride 98 (98-112) meq/L Carbon Dioxide 27 (23-33) meq/L Anion Gap 10 (5-20) BUN 18 (7-22) mg/dL Creatinine 0.5 L (0.70-1.50) mg/dL Estimated GFR > 60 (>60 ml/min/1.73m(2)) BUN/Creatinine Ratio 36.00 H (6-20) Glucose 137 H (78-110) mg/dL Mean Blood Glucose 100.147 mg/dL Hemoglobin A1c 5.59 (4.2-6.0) % Calculated Osmolality 283.0 (267-292) mOsm/kg Calcium 9.5 (8.7-10.7) mg/dL NT-Pro-B Natriuret Pep 236 H (0-125) PG/ML Vitamin D 25-Hydroxy 15.1 L (30-100) NG/ML Objective : Exam - General General Appearance: No Acute Distress, Cooperative Additional General Exam Details: Vital Signs - Last Taken Temperature 97.8 F 11/12/16 13:16 Pulse Rate 119 H 11/12/16 13:16 Respiratory Rate 20 11/12/16 13:16 Blood Pressure 156/91 11/12/16 13:16 Pulse Ox 93 11/12/16 13:16 On 4 L per nasal cannula - Eye Eye Exam: No Scleral Icterus - Respiratory Respiratory Exam: Breathing Non Labored, Decreased Breath Sounds (Markedly diminished breath sounds, but slightly better on expiration today than on admission.) - Cardiovascular Cardiovascular Exam: RRR, No Murmur, No Clicks, No Gallops, No Rubs, No JVD - GI/Abdominal GI/Abdominal Exam: Normal Bowel Sounds, Non Tender, Non Distended, Soft - Extremities Extremities Exam: No Edema Present, No Cyanosis Present, Clubbing Present - Neurological Neurological Exam: Alert, Oriented x 3, No Facial Droop, Speech Intact / Clear - Psychiatric Psychiatric Exam: Depressed Assessment and Plan - Patient Problems (1) COPD exacerbation Current Visit: Yes Status: Acute Comment: No evidence of infiltrate on CT scan of the chest. We followed up on possible increase in the left renal cyst that the patient has had, and it is still at about the same size, it was overestimated on CT scan of the chest. Current plan is to continue Levaquin and steroids, drop the Flagyl. No evidence of aspiration. No pneumonia. (2) Brice's esophagus with esophagitis Current Visit: Yes Status: Chronic (3) Chronic pain syndrome Current Visit: Yes Status: Chronic (4) Depression with anxiety Current Visit: Yes Status: Chronic (5) Fall Current Visit: Yes Status: Acute Qualifiers: Encounter type: initial encounter Qualified Description: Fall, initial encounter Qualifier Code(s): (W19.XXXA) Unspecified fall, initial encounter (6) Aspiration pneumonia Current Visit: Yes Status: Ruled-out Qualifiers: Aspiration pneumonia type: unspecified Laterality: unspecified laterality Lung location: unspecified part of lung Qualified Description : Aspiration pneumonia, unspecified aspiration pneumonia type, unspecified laterality, unspecified part of lung Qualifier Code(s): (J69.0) Pneumonitis due to inhalation of food and vomit - Assessment / Plan Additional Assessment/Plan Details: Continue antibiotics/steroids/breathing therapies/oxygen. Hopefully switch Levaquin to by mouth tomorrow. If still tolerated by mouth dose tomorrow, consider discharge tomorrow with high-dose steroids for an extended period of time. Patient's baseline is 20 mg prednisone daily so we can do a slow taper to that.
[2016-11-12] MEDS ORDERED: Levofloxacin 750mg (Premix) 750 MG in Dextrose 1 BAG IV SCH (18:00)
[2016-11-13] MEDS: oxyCODONE IR Tab 15 MG, oxyCODONE IR Tab 5 MG PO SCH ×10 (01:00→16:17)
[2016-11-13] MEDS: methylPREDNISolone 125 MG/2 ML VIAL IVP SCH ×3 (01:23→14:37)
[2016-11-13] MEDS: IPRATROPIUM/ALBUTEROL SULFATE 3 ML NEB NEB SCH ×4 (02:36→15:00)
[2016-11-13 04:53] VITALS: RESP 24
[2016-11-13 08:44] VITALS: TEMP 97.6
[2016-11-13] MEDS ORDERED: VENLAFAXINE XR 37.5 MG CAP PO SCH (09:00)
[2016-11-13] MEDS: METHADONE 5 MG PO SCH (09:18)
[2016-11-13] MEDS: POTASSIUM CHLORIDE 20 MEQ TAB PO SCH (09:18)
[2016-11-13] MEDS: FLUoxetine 20 MG CAPSULE PO SCH (09:19)
[2016-11-13] MEDS: OMEPRAZOLE 20 MG CAPSULE PO SCH (09:19)
[2016-11-13] MEDS: FUROSEMIDE 40 MG TABLET PO SCH (09:19)
[2016-11-13] MEDS: GABAPENTIN 300 MG CAPSULE PO SCH (09:19)
[2016-11-13] MEDS: BuPROPion SR Tab 150 MG TAB PO SCH (09:19)
[2016-11-13] MEDS: VENLAFAXINE XR 37.5 MG CAP PO SCH (09:19)
[2016-11-13] MEDS: OXYCODONE PO SCH ×2 (09:20)
[2016-11-13] MEDS: TIOTROPIUM BROMIDE 18 MCG CAPSULE INH SCH (09:26)
[2016-11-13] MEDS: BUDESONIDE INH SCH (09:29)
[2016-11-13] MEDS: FORMOTEROL FUMARATE INH SCH (09:29)
--- NOTE | 2016-11-13 17:15 | DCSUMMARY ---
Hospitalization Summary Admit Date: 11/11/16 Discharge Date: 11/13/16 Primary Diagnosis:: COPD exacerbation Hospital Course: This is a 61-year-old male with end-stage chronic obstructive pulmonary disease on 4 L of oxygen at home, chronic hypoxemic respiratory failure, and prior history of lung cancer with local resection who presented with increased shortness of breath and some cough. The patient had a CT scan that was negative for pulmonary emboli and there was no infiltrate. He was treated for COPD exacerbation. The patient improved with high-dose Solu-Medrol and Levaquin over the course of the 3 days he was in the hospital. The patient had what appeared to be an increase in the size of the left renal mass that has been known, and so I repeated a CT scan of the abdomen and pelvis to look at this again. I believe it was overestimated on the chest CT scan because it was not well visualized, and in actuality on the CT scan of the abdomen and pelvis, the lesion does not appear to have gotten any larger at all. It appears consistent with a benign cyst. Given the resolution of the above issues, we made the determination because of the severity of Mr. Harding' COPD, that we should keep him on higher dose steroids at home for the next 20 days or so, do a slow taper, and place on Levaquin for 2 more days for total of 5 days. He can resume his Zithromax therapy for COPD exacerbation prevention post Levaquin therapy. We did find a vitamin D deficiency. We are replacing that. We will keep him on 50,000 international units weekly for the next 7 weeks. Today, the patient feels better, feels like his shortness of breath this improved, does not have any chest pain, and is ready to go home. Assessment and Plan: 1. As per discharge assessments noted 2. Disposition: Patient is discharged home. 3. Condition on discharge, stable and improved. Has end-stage COPD, and long- term prognosis is very poor. Prognosis report suggests that patients and this category of COPD 50% chance of living up to 4 years. 4. Diet: regular diet 5. Activities: resume normal activities 6. Follow-Up: 1. Primary care provider next week 2. 7. Medications at the Time of Discharge: Home Medications Medication Instructions Recorded Confirmed Type Ibuprofen [Motrin] 800 mg PO TID PRN 03/21/11 11/11/16 History Multivitamin [Multi-Day Vitamins] 1 each PO DAILY 04/25/11 11/11/16 History Bupropion HCl [Wellbutrin Sr] 150 mg ORAL BID tab 06/04/11 11/11/16 History Gabapentin 300 mg PO BID 09/17/11 11/11/16 History Methadone HCl 5 mg PO BID 09/17/11 11/11/16 History Oxycodone HCl 20 mg ORAL q four hours tab 09/17/11 11/11/16 History Oxycodone HCl [Oxycontin] 30 mg PO BID 09/17/11 11/11/16 History Albuterol Sulfate [Proair Hfa] 1 - 2 puff INH Q4-6H PRN #3 inhaler 02/13/1610/27 Clinic Budesonide/Formoterol Fumarate 2 puff INH BID #3 inh 02/13/16 11/11/16 Clinic [SYMBICORT] Tiotropium Evans [Spiriva] 1 puff INH DAILY inh 04/28/16 11/11/16 History Furosemide 1 tab PO q mid AM #90 tab 05/25/16 11/11/16 Clinic Lidocaine HCl [Lidocaine HCl 15 ml PO Q4H PRN #3 ml 05/25/16 11/11/16 Clinic Viscous] Ondansetron HCl [Zofran] 1 tab PO Q8H PRN #30 tab 05/25/16 11/11/16 Clinic Albuterol/Ipratrop Neb Soln 1 vial INH Q4-6HRSPRN #120 box 08/05/16 11/11/16 Clinic [Duoneb Neb Soln] Omeprazole 1 cap PO BID #60 cap 10/26/16 11/11/16 Clinic Fluoxetine HCl [Prozac] 1 cap ORAL QD #0 capsule 10/27/16 11/11/16 Clinic predniSONE Tab [Deltasone Tab] 2 tab PO DAILY #60 tab 10/29/16 11/11/16 Clinic Potassium Chloride 1 tab PO q mid AM #90 tab 11/06/16 11/11/16 Clinic Venlafaxine HCl ER [Effexor Xr] 37.5 mg PO BID 11/12/16 11/12/16 History Levofloxacin Tab [Levaquin Tab] 750 mg PO DAILY #2 tab 11/13/16 Rx Prednisone 20 mg PO DAILY #100 tab 11/13/16 Rx 8. Time, care, counseling and coordination of care for this discharge is less than 30 minutes. Exam - Vitals Vital Signs: Vital Signs Temperature 97.6 F Temperature Source Temporal Artery Scan Pulse Rate [Pulse Oximeter] 111 Pulse Rate [Apical] 110 Pulse Rate [Telemetry] 107 Pulse Rate 100 Respiratory Rate 24 Blood Pressure [Left Arm] 131/76 Blood Pressure 145/90 Pulse Ox 96 Oxygen Flow Rate 4 Oxygen Delivery Method Nasal Cannula Height 5 ft 4 in Weight 160 lb 12.8 oz - General General Appearance: POSITIVE: No Acute Distress, Cooperative - Eye Eye Exam: POSITIVE: No Scleral Icterus - Respiratory Respiratory Exam: POSITIVE: Breathing Non Labored, Decreased Breath Sounds (but best air movement in past three days.) - Cardiovascular Cardiovascular Exam: POSITIVE: RRR, No Murmur, No Clicks, No Gallops, No Rubs, No JVD - GI/Abdominal GI/Abdominal Exam: POSITIVE: Normal Bowel Sounds, Non Tender, Non Distended, Soft - Extremities Extremities Exam: POSITIVE: No Edema Present, No Cyanosis Present, Clubbing Present - Neurological Neurological Exam: POSITIVE: Alert, Oriented x 3, No Facial Droop, Speech Intact / Clear Data Perinent Studies: Laboratory Results 11/11/16 11/11/16 11/12/16 Range/Units 17:07 17:20 05:26 WBC 9.23 7.56 (4.8-10.8) 10^3/uL RBC 3.63 L 3.66 L (4.70-6.10) 10^6/uL Hgb 10.9 L 11.2 L (14.0-18.0) g/dL Hct 35.2 L 34.6 L (42.0-52.0) % MCV 97.0 H 94.5 H (80-90) FL MCH 30.0 30.6 (27-31) PG MCHC 31.0 L 32.4 L (33-37) g/dL RDW Std Deviation 51.4 H 49.0 (39-50) fL RDW Coeff of Yumiko 15.0 H 14.8 H (11.5-14.5) % Plt Count 329 280 (140-350) 10*3/uL MPV 9.1 9.0 (7.4-12.2) FL Immature Gran % (Auto) 0.4 0.3 (0-5) % Neut % (Auto) 78.9 95.7 H (50-80) % Lymph % (Auto) 12.0 3.2 L (10-50) % [place] % (Auto) 8.0 0.7 L (5-15) % Eos % (Auto) 0.5 0 (0-8) % Baso % (Auto) 0.2 0.1 (0-1) % Immature Gran # (Auto) 0.04 0.02 10*3/UL Neut # (Auto) 7.27 7.24 10*3/UL Lymph # (Auto) 1.11 0.24 10*3/uL [place] # (Auto) 0.74 0.05 L (0.3-0.8) 10*3/UL Eos # (Auto) 0.05 0 10*3/UL Baso # (Auto) 0.02 0.01 10*3/UL WBC Morphology Comment Normal morphology Normal morphology (NORM) Plt Morphology Comment Normal morphology Normal morphology (NORM) RBC Morph Comment Normal morphology Normal morphology (NORM) VBG pH 7.52 H (7.32-7.42) VBG pCO2 36 L (45-55) mmHg VBG HCO3 30 H (22-26) mmol/L VBG Base Excess 7 H (-2-2) MMOL/L Sodium 136 135 (135-145) meq/L Potassium 4.2 4.3 (3.8-5.2) meq/L Chloride 94 L 98 (98-112) meq/L Carbon Dioxide 34 H 27 (23-33) meq/L Anion Gap 8 10 (5-20) BUN 21 18 (7-22) mg/dL Creatinine 0.6 L 0.5 L (0.70-1.50) mg/dL Estimated GFR > 60 > 60 (>60 ml/min/1.73m(2)) BUN/Creatinine Ratio 35.00 H 36.00 H (6-20) Glucose 120 H 137 H (78-110) mg/dL Mean Blood Glucose 100.147 mg/dL Hemoglobin A1c 5.59 (4.2-6.0) % Calculated Osmolality 285.0 283.0 (267-292) mOsm/kg Lactic Acid 1.0 (0.70-2.10) MMOL/L Calcium 9.3 9.5 (8.7-10.7) mg/dL Magnesium 2.0 (1.6-2.4) mg/dL Iron 82 (50 - 150) mcg/dL TIBC 354 (250 - 400) mcg/dL % Saturation 23 (14 - 50) % Total Bilirubin 0.4 (0.3-1.2) mg/dL AST 43 (21-57) IU/L ALT 44 (21-72) IU/L Alkaline Phosphatase 108 (38-126) IU/L C-Reactive Protein 1.5 H (0.0-0.9) mg/dL NT-Pro-B Natriuret Pep 105 236 H (0-125) PG/ML Total Protein 6.7 (6.1-8.0) g/dL Albumin 3.9 (3.5-4.8) g/dL Globulin 2.8 (2.50-4.10) g/dL Albumin/Globulin Ratio 1.30 (1.3-2.0) mg/g Vitamin B12 417 (180 - 914) ng/L Vitamin D 25-Hydroxy 15.1 L (30-100) NG/ML Folate >20.0 (>=4.0) mcg/L Patient Problems - Patient Problem List (1) COPD exacerbation Status: Acute (2) Brice's esophagus with esophagitis Status: Chronic (3) Chronic pain syndrome Status: Chronic (4) Depression with anxiety Status: Chronic (5) Fall Status: Acute Qualifiers: Encounter type: initial encounter Qualified Description: Fall, initial encounter Qualifier Code(s): (W19.XXXA) Unspecified fall, initial encounter (6) Vitamin D deficiency Status: Acute
== END 2016-11-13 17:28 | disposition home or self-care (01) | DRG 190 ==
LOC: ER 16:35 → MED/SURG 18:12
PROVIDERS: ADMIT Family Medicine; ATTEND Family Medicine
DX: J44.1 Chronic obstructive pulmonary disease with (acute) exacerbation (principal); J69.0 Pneumonitis due to inhalation of food and vomit; J96.11 Chronic respiratory failure with hypoxia; Z85.118 Personal history of other malignant neoplasm of bronchus and lung; K22.70 Barrett's esophagus without dysplasia; G89.4 Chronic pain syndrome; F41.8 Other specified anxiety disorders; E55.9 Vitamin D deficiency, unspecified
CPT/HCPCS: 36415; 71010; 71250; 74178; 80048; 80053; 82306; 82607; 82746; 82803; 83036; 83540; 83550; 83605; 83735; 83880; 85025; 86140; 87040; 90670; 94640; 94761; 99285; J1170; J3490; J7620; S0109

== ENCOUNTER → 2016-12-29 | Outpatient (CLI) | payer BC, OTHER ==
[2016-12-29 16:47] LABS: BASOPHILS # (AUTO) 0 10*3/UL; BASOPHILS % (AUTO) 0 % (0-1); EOSINOPHILS # (AUTO) 0 10*3/UL; EOSINOPHILS % (AUTO) 0 % (0-8); HEMATOCRIT 39.2 % (42.0-52.0); LYMPHOCYTES # (AUTO) 0.47 10*3/uL; MEAN CORPUSCULAR HEMOGLOBIN 29.6 PG (27-31); MEAN CORPUSCULAR HGB CONC 30.6 g/dL (33-37); MEAN CORPUSCULAR VOLUME 96.8 FL (80-90); MONOCYTES % (AUTO) 4.5 % (5-15); NEUTROPHILS # (AUTO) 8.07 10*3/UL; NEUTROPHILS % (AUTO) 89.9 % (50-80); RED BLOOD COUNT 4.05 10^6/uL (4.70-6.10)
[2016-12-29 16:49] LABS: PLATELET MORPHOLOGY COMMENT NORMAL MORPHOLOGY (NORM); RBC MORPHOLOGY COMMENT NORMAL MORPHOLOGY (NORM); WBC MORPHOLOGY COMMENT NORMAL MORPHOLOGY (NORM)
[2016-12-29 17:05] LABS: BLOOD UREA NITROGEN 15 mg/dL (7-22); C-REACTIVE PROTEIN 1.1 mg/dL (0.0-0.9); CALCIUM 9.4 mg/dL (8.7-10.7); EST GLOMERULAR FILTRATION > 60 (>60 ml/min/1.73m(2)); SERUM ALBUMIN 3.8 g/dL (3.5-4.8)
--- NOTE | 2016-12-29 17:21 | DI ---
XR T-SPINE 3VW,12/29/2016 4:10 PM: Clinical History: Acute thoracic back pain with tenderness on deep palpation over the spinous process . Previous Exam: CT thoracic spine performed November 11, 2016 Findings: AP and lateral views of the thoracic spine are obtained, and demonstrate increased compression of the fourth thoracic vertebral body. This has demonstrated increased compression since the prior exam. There is an epidural stimulator device which is partially visible on this exam. The lungs appear stable when compared with prior exam. There is some flattening of the hemidiaphragms consistent with COPD. Impression: Increasing compression of the fourth thoracic vertebral body most consistent with an acute compressio n fracture. Recommendations: Recommend CT thoracic spine to verify acute compression. There is a slight possibili ty of discitis, but this can probably be ruled out on the CT scan.
[2016-12-29 17:35] LABS: ERYTHROCYTE SEDIMENTATION RATE 14 MM/HR (0-15)
== END ==
LOC: RAD 16:15
PROVIDERS: ATTEND Internal Medicine
DX: M54.6 Pain in thoracic spine (principal); M48.54XA Collapsed vertebra, not elsewhere classified, thoracic region, initial encounter for fracture; Z96.89 Presence of other specified functional implants
CPT/HCPCS: 36415; 72072; 80053; 85025; 85652; 86140

== ENCOUNTER → 2017-01-05 | Outpatient (CLI) | payer BC, OTHER ==
--- NOTE | 2017-01-06 12:30 | DI ---
CT THORACIC SPINE W/O CONTRAST,01/05/2017 4:14 PM: Clinical History: Traumatic compression fracture of the seventh thoracic vertebral body. Previous Exam: December 29, 2016 Findings: Multiple helically acquired CT images are obtained through the cervical spine without contrast, and d emonstrate anterior wedging of the midthoracic spine. Postsurgical changes are seen of the lower cervical spine consistent with anterior screw and plate fi xation. There is loss of intervertebral disc height with uncovertebral joint osteophytes. The worse of the compression deformities is at the T7 and T8 levels where there is approximately 75% compression of the anterior vertebral bodies with 50% of the posterior. There is also compression of the T6 and T5 levels. There is some degenerative facet arthropathy noted. There are old right lateral rib fractures as well. There is a left healing posterior left rib fractures. There is an epidural stimulator device noted within the lower thoracic epidural space. There is an 18 mm exophytic simple cyst in the interpolar region of the left kidney. Impression: Severe compression of the T7 and T8 levels where there is approximately 75% compression of the anteri or vertebral bodies. Mild compression of T6 and T7.
== END ==
LOC: CT 16:11
PROVIDERS: ATTEND Internal Medicine
DX: S22.060A Wedge compression fracture of T7-T8 vertebra, initial encounter for closed fracture (principal)
CPT/HCPCS: 72128

== ENCOUNTER 2017-03-15 13:25 | Emergency (ER) | payer BC, OTHER ==
[2017-03-15] MEDS ORDERED: ONDANSETRON 4 MG/2 ML VIAL IVP ONE (13:50)
[2017-03-15] MEDS ORDERED: Sodium Chloride 0.9% 1,000 ML PRIMARY IV ONE (13:50)
[2017-03-15] MEDS ORDERED: KETOROLAC 15 MG/1 ML VIAL IVP ONE (13:50)
--- NOTE | 2017-03-15 13:58 | PDOC ---
Gen Adult / Medical Screen HPI - General Chief Complaint: General Medical Stated Complaint: NOT FEELING WELL Date Seen by Provider: 03/15/17 Time Seen by Provider: 13:53 Source: POSITIVE: Patient, Spouse Exam Limitations: POSITIVE: No limitations Nurse's Notes Reviewed & Considered: Yes - Indicators Temperature Between 95 and 101 Degrees: Yes Respirations Between 12 and 20: No (21) Blood Pressure Between 100-165 (sys) and 60-100 (cabrales): Yes Pulse Range Between 60-105 (100 for age > 60 years): No (114) Severe Pain (Greater than 5/10 Reported): Yes Chest or Abdominal Pain: Yes Inability to Walk: No Pt Reports Active High Risk Cond. (TB/Hepatitis/HIV/Chemo): No Abnormal Mental Status: No - History of Present Illness Initial Comments: This 61-year-old male comes in today with chief complaint of right upper quadrant pain, right lateral chest wall pain, and headache. Patient has symptoms been ongoing for 2 days and escalating over the last 24 hours. His pain is sharp with radiation from the right upper quadrant into the right lateral chest and is maximally tender along the costal margin. Of note, he has had a cholecystectomy, and right lobectomy of the upper lobe for lung cancer. He denies any fever or chills, he does have sweats. He states he has a terrible headache that is getting worse over the last 48 hours. 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 He denies any nausea vomiting or diarrhea, he does have constipation. He denies skin rashes, myalgias or arthralgias. He has very concentrated urine but no dysuria. Body Location Affected: REPORTS: Head, Chest, Abdomen Timing: REPORTS: Gradual, Getting Worse Duration: >24 hours Similar Symptoms Previously: No Recent Care Received: REPORTS: Denies Any Prior Injuries Related to Current Complaint?: No - Patient Home Medications Home Medications: Home Medications Bupropion HCl [Wellbutrin Sr] 150 mg ORAL BID tab 06/04/11 Gabapentin 300 mg PO BID 09/17/11 Methadone HCl 5 mg PO BID 09/17/11 Oxycodone HCl 20 mg ORAL q four hours tab 09/17/11 Oxycodone HCl [Oxycontin] 30 mg PO BID 09/17/11 Lidocaine HCl [Lidocaine HCl Viscous] 15 ml PO Q4H PRN #3 ml 05/25/16 Ondansetron HCl [Zofran] 1 tab PO Q8H PRN #30 tab 05/25/16 Fluoxetine HCl [Prozac] 1 cap ORAL QD #0 capsule 10/27/16 Albuterol Sulfate [Proair Hfa] 1 - 2 puff INH Q4-6H PRN #3 inhaler 11/18/16 Budesonide/Formoterol Fumarate [Symbicort] 2 puff INH BID #3 inh 11/18/16 Potassium Chloride 1 tab PO q mid AM #120 tab 11/18/16 Tiotropium [place] [Spiriva] 1 puff INH DAILY #90 inh 11/18/16 Omeprazole 1 cap PO BID #60 cap 12/02/16 Albuterol Neb Soln 0.083% 3 ml INH QID #120 vial 12/25/16 Azithromycin 1 tab PO DAILY #30 tab 12/25/16 Lidocaine 1 patch TRANSDERM DAILY #10 patch 12/29/16 Albuterol/Ipratrop Neb Soln [Duoneb Neb Soln] 1 vial INH Q4-6HRSPRN #360 box 02/24 Diclofenac Sodium 2 - 4 gm TP QID #300 gm 01/14/17 predniSONE Tab [Deltasone Tab] 3 tab PO DAILY #60 tab 01/19/17 Sodium Chloride For Inhalation [Sodium Chloride] 1 vial INH Q6H PRN #360 vial Furosemide 1 tab PO q mid AM #120 tab 03/15/17 Morphine Inj [morphine Inj] 5 mg NEB Q4H PRN PRN 03/15/17 - Patient Allergies Allergies/Adverse Reactions: Allergies Allergy/AdvReac Type Severity Reaction Status Date / Time Benzodiazepines AdvReac Intermediate NOT Verified 03/15/17 14:30 APPLICABLE cyclobenzaprine HCl AdvReac Intermediate HALLUCINATI Verified 03/15/17 14:30 [From Flexeril] ONS pregabalin [From Lyrica] AdvReac Intermediate SWELLING Verified 03/15/17 13:36 Past Medical History - heen HEENT History: Denies History, Hard of Hearing, Chipped or Loose Teeth Cardiovascular History: Hypertension, Hyperlipidemia Respiratory History: Asthma, COPD, Shortness of Breath, Sleep Apnea, Home CPAP Use, Snoring, Other (please comment) Additional Respiratory History: 3L O2 WITH CPAP. LUNG CANCER RIGHT UPPER LOBE, RIGHT UPPER LOBECTOMY Gastrointestinal History: GERD, Other (please comment) Additional Gastrointestinal History: BARRETTS ESOPHAGUS Genitourinary History: Denies History Endocrine History: Denies History Musculoskeletal History: Back Pain, Back Injury, Muscle Weakness, Paralysis Prosthesis or Implant: Yes (HARDWARE IN BACK SPINAL STIMULATOR L BUTTOCK) Additional Musculoskeletal History: HAS NUMBNESS WEAKNESS IN R LEG AND FOOT / DROP FOOT RIGHT SIDE, DUE TO BACK SURGERY Neurological History: Denies History Blood Disorders: Denies History Psychiatric History: Depression, Anxiety Disorders, PTSD Additional Psychiatric History: HX ALCOHOLISM History of Sexually Transmitted Diseases: No Cancer History: Lung Cancer Treatment / Date(s) of Treatment: R UPPER LOBECTOMY WITH 4 CHEMO TX'S In Past Year Been Physically Harmed or Verbally Threatened: No History of MDRO: No History of Other Communicable Diseases: No Tobacco Use: Former Smoker Alcohol Use: Sober Substance Use Type: None Previous Surgical History: Yes Type / Date of Surgery: LAMINECTOMY/R UPPER LOBECTOMY/VERTEBRAL FUSION/3 NECK FUSIONS/TONSILS/KAUSHIK/BILAT KNEE SCOPES Anesthesia Reactions: Yes (HYPOTENSIVE) Malignant Hyperthermia: No Significant Family History: Asthma, COPD, Lung disease, Vascular disease ROS - Limitations ROS Limitations: No Limitations Constitution: REPORTS: Diaphoresis Cardiovascular: REPORTS: Chest Pain Respiratory: REPORTS: Hurts To Breathe, Shortness Of Breath Neurological: REPORTS: Confusion Gastrointestinal: REPORTS: Abdominal Pain, Constipation Endocrine: REPORTS: Denies Symptoms Musculoskeletal: REPORTS: Denies MS Symptoms Genitourinary: REPORTS: Dark Urine Eyes: REPORTS: Denies Symptoms ENT: REPORTS: Denies Symptoms Skin: REPORTS: Denies Skin Symptoms Lympathic: REPORTS: Denies Lympathic Symptoms Immunologic: POSITIVE: Denies Symptoms Psychiatric: POSITIVE: Denies Psych Symptoms Gen Adult/Medical Screen Exam - General Appearance General Appearance: POSITIVE: Alert, Cooperative, No Evidence of Trauma, Moderate Distress - HEENT HEENT: POSITIVE: Head Inspection Nml, Eyes Inspection Nml, Ears Inspection Nml, Nose Inspection Nml, Oral/Dental Inspect. Nml, Pharynx Inspect. Nml, PERRL, EOMI - Pupils Pupil Size: 5 mm: Bilateral - Neck Neck: POSITIVE: Normal Inspection, Thyroid Normal - Respiratory Respiratory: POSITIVE: Breath Sounds Normal, Other (Tenderness over his right lateral ribs.) - Cardiovascular Cardiovascular: POSITIVE: No Murmur, No Gallop, PMI Normal, Tachycardia - Abdomen Abdomen: Soft: (All Quadrants), Normal Bowel Sounds: (All Quadrants), Denies Tenderness: (All Quadrants) - Back Back: POSITIVE: Normal Inspection - Neurological / Psychological Mental Status: POSITIVE: Mood Normal, Affect Normal Orientation: POSITIVE: Oriented x 3 - Skin Skin: POSITIVE: Warm, Dry, No Rash, Pallor - Extremities Extremity: Non-Tender: (All Extremities), Normal ROM: (All Extremities), Normal Inspection: (All Extremities), Pelvis Stable: (All Extremities) Procedures - Laceration/Wound Repair Did patient have a laceration repair: No Gen Adlt/Medical Scrn Progress - Results Reviewed by me Xrays/CTs/US Reviewed by me: Yes Discussed with Radiologist: Yes Lab Results Reviewed: Yes Lab Results:: Laboratory Results 03/15/17 03/15/17 03/15/17 Range/Units 13:59 14:03 14:08 WBC 9.85 (4.8-10.8) 10^3/uL RBC 3.69 L (4.70-6.10) 10^6/uL Hgb 10.8 L (14.0-18.0) g/dL Hct 36.6 L (42.0-52.0) % MCV 99.2 H (80-90) FL MCH 29.3 (27-31) PG MCHC 29.5 L (33-37) g/dL RDW Std Deviation 54.6 H (39-50) fL RDW Coeff of Yumiko 15.4 H (11.5-14.5) % Plt Count 274 (140-350) 10*3/uL MPV 8.7 (7.4-12.2) FL Immature Gran % (Auto) 0.2 (0-5) % Neut % (Auto) 88.8 H (50-80) % Lymph % (Auto) 4.5 L (10-50) % Stephens % (Auto) 5.0 (5-15) % Eos % (Auto) 1.3 (0-8) % Baso % (Auto) 0.2 (0-1) % Immature Gran # (Auto) 0.02 10*3/UL Neut # (Auto) 8.75 10*3/UL Lymph # (Auto) 0.44 10*3/uL Stephens # (Auto) 0.49 (0.3-0.8) 10*3/UL Eos # (Auto) 0.13 10*3/UL Baso # (Auto) 0.02 10*3/UL WBC Morphology Comment Normal morphology (NORM) Plt Morphology Comment Normal morphology (NORM) RBC Morph Comment See comments (NORM) D-Dimer 1.82 H (0.00-0.59) mg/L VBG pH 7.53 H (7.32-7.42) VBG pCO2 53 (45-55) mmHg VBG HCO3 44 H (22-26) mmol/L VBG Base Excess 21 H (-2-2) MMOL/L Sodium 134 L (135-145) meq/L Potassium 4.0 (3.8-5.2) meq/L Chloride 86 L (98-112) meq/L Carbon Dioxide 42 H (23-33) meq/L Anion Gap 6 (5-20) BUN 17 (7-22) mg/dL Creatinine 0.5 L (0.70-1.50) mg/dL Estimated GFR > 60 (>60 ml/min/1.73m(2)) BUN/Creatinine Ratio 34.00 H (6-20) Glucose 104 (78-110) mg/dL Calculated Osmolality 279.0 (267-292) mOsm/kg Lactic Acid < 0.5 L (0.70-2.10) MMOL/L Calcium 8.4 L (8.7-10.7) mg/dL Magnesium 1.9 (1.6-2.4) mg/dL Total Bilirubin 0.4 (0.3-1.2) mg/dL AST 34 (21-57) IU/L ALT 36 (21-72) IU/L Alkaline Phosphatase 117 (38-126) IU/L Troponin I < 0.012 (< 0.040) ng/mL C-Reactive Protein 3.8 H (0.0-0.9) mg/dL Total Protein 6.2 (6.1-8.0) g/dL Albumin 3.5 (3.5-4.8) g/dL Globulin 2.7 (2.50-4.10) g/dL Albumin/Globulin Ratio 1.20 L (1.3-2.0) mg/g Ur Collection Type Urine Color Urine Clarity (CLEAR) Urine pH (5.0-8.5) Ur Specific Hines (1.005-1.030) Urine Protein (NEG) mg/dl Urine Glucose (UA) (NEG) mg/dL Urine Ketones (NEG) Urine Occult Blood (NEG) Urine Nitrate (NEG) Urine Bilirubin (NEG) Urine Urobilinogen (0.2) EU/dL Ur Leukocyte Esterase (NEG) Urine RBC (NONE) /hpf Urine WBC (NONE) Ur Squamous Epith Cells (NONE) Ur Renal Epithelial Cell (NONE) Urine Crystals Urine Bacteria (NONE) Urine Casts (NONE) Urine Mucus (NONE) Urine Trichomonas (NONE) Urine Yeast (NONE) Ur Culture Indicated? 03/15/17 Range/Units 14:49 WBC (4.8-10.8) 10^3/uL RBC (4.70-6.10) 10^6/uL Hgb (14.0-18.0) g/dL Hct (42.0-52.0) % MCV (80-90) FL MCH (27-31) PG MCHC (33-37) g/dL RDW Std Deviation (39-50) fL RDW Coeff of Yumiko (11.5-14.5) % Plt Count (140-350) 10*3/uL MPV (7.4-12.2) FL Immature Gran % (Auto) (0-5) % Neut % (Auto) (50-80) % Lymph % (Auto) (10-50) % Stephens % (Auto) (5-15) % Eos % (Auto) (0-8) % Baso % (Auto) (0-1) % Immature Gran # (Auto) 10*3/UL Neut # (Auto) 10*3/UL Lymph # (Auto) 10*3/uL Stephens # (Auto) (0.3-0.8) 10*3/UL Eos # (Auto) 10*3/UL Baso # (Auto) 10*3/UL WBC Morphology Comment (NORM) Plt Morphology Comment (NORM) RBC Morph Comment (NORM) D-Dimer (0.00-0.59) mg/L VBG pH (7.32-7.42) VBG pCO2 (45-55) mmHg VBG HCO3 (22-26) mmol/L VBG Base Excess (-2-2) MMOL/L Sodium (135-145) meq/L Potassium (3.8-5.2) meq/L Chloride (98-112) meq/L Carbon Dioxide (23-33) meq/L Anion Gap (5-20) BUN (7-22) mg/dL Creatinine (0.70-1.50) mg/dL Estimated GFR (>60 ml/min/1.73m(2)) BUN/Creatinine Ratio (6-20) Glucose (78-110) mg/dL Calculated Osmolality (267-292) mOsm/kg Lactic Acid (0.70-2.10) MMOL/L Calcium (8.7-10.7) mg/dL Magnesium (1.6-2.4) mg/dL Total Bilirubin (0.3-1.2) mg/dL AST (21-57) IU/L ALT (21-72) IU/L Alkaline Phosphatase (38-126) IU/L Troponin I (< 0.040) ng/mL C-Reactive Protein (0.0-0.9) mg/dL Total Protein (6.1-8.0) g/dL Albumin (3.5-4.8) g/dL Globulin (2.50-4.10) g/dL Albumin/Globulin Ratio (1.3-2.0) mg/g Ur Collection Type Voided specimen Urine Color Yellow Urine Clarity Clear (CLEAR) Urine pH 8.5 (5.0-8.5) Ur Specific Hines 1.015 (1.005-1.030) Urine Protein Negative (NEG) mg/dl Urine Glucose (UA) Negative (NEG) mg/dL Urine Ketones Negative (NEG) Urine Occult Blood Trace-intact H (NEG) Urine Nitrate Negative (NEG) Urine Bilirubin Negative (NEG) Urine Urobilinogen 0.2 (0.2) EU/dL Ur Leukocyte Esterase Negative (NEG) Urine RBC 2-5 (NONE) /hpf Urine WBC None (NONE) Ur Squamous Epith Cells None (NONE) Ur Renal Epithelial Cell None (NONE) Urine Crystals Many Urine Bacteria None (NONE) Urine Casts None (NONE) Urine Mucus None (NONE) Urine Trichomonas None (NONE) Urine Yeast None (NONE) Ur Culture Indicated? Culture not set EKG Interpretation:: POSITIVE: Normal Sinus Rhythm, Normal ST/T - Patient's Progress Pain Medication Addressed: POSITIVE: Yes Re-Examine Time: 16:31 Status: POSITIVE: Improved MDM / ED Course: Patient was evaluated, IV started, blood drawn and sent to the lab for studies, radiographic and EKG studies also obtained. Patient received IV normal saline, Dilaudid, Zofran, and Ativan. He significantly improved and rested easily. Findings: CT scan reveals bilateral fractures of ribs. No PE. CT of his abdomen shows no acute intra-abdominal abnormality. There is noted to be constipation. CBC shows a slight anemia with a normal white count, comprehensive metabolic panel is unremarkable. Assessment: Chest pain related to rib fractures. Plan: Discharge home, Ativan 1 mg by mouth twice a day when necessary, follow- up with Dr. Parekh. - Consult Counseled: POSITIVE: Patient, Family, RE: Lab Results, RE: Radiology Results, RE : DX, RE: Need for F/U Patient Care Time - Estimated PCT Patient Care Time (In Minutes): 30 Vital Signs - Recent Vital Signs Vital Signs: Vital Signs (Last 8 hours) Temp Pulse Resp BP Pulse Ox 03/15/17 13:39 97.9 F 114 H 21 127/97 97 - VS Reviewed Vital Signs Reviewed: Yes Discharge Clinical Impression: Broken ribs Discharge Disposition: Discharged to Home Condition: Stable Patient Instructions Given at Discharge: Rib Fracture (ED) Follow Up With: CALI PAREKH [Primary Care Provider] -
[2017-03-15 14:03] LABS: BASOPHILS # (AUTO) 0.02 10*3/UL; BASOPHILS % (AUTO) 0.2 % (0-1); EOSINOPHILS # (AUTO) 0.13 10*3/UL; EOSINOPHILS % (AUTO) 1.3 % (0-8); HEMATOCRIT 36.6 % (42.0-52.0); HEMOGLOBIN 10.8 g/dL (14.0-18.0); LYMPHOCYTES # (AUTO) 0.44 10*3/uL; MEAN CORPUSCULAR HEMOGLOBIN 29.3 PG (27-31); MEAN CORPUSCULAR HGB CONC 29.5 g/dL (33-37); MEAN CORPUSCULAR VOLUME 99.2 FL (80-90); MEAN PLATELET VOLUME 8.7 FL (7.4-12.2); MONOCYTES # (AUTO) 0.49 10*3/UL (0.3-0.8); NEUTROPHILS # (AUTO) 8.75 10*3/UL; NEUTROPHILS % (AUTO) 88.8 % (50-80); RED BLOOD COUNT 3.69 10^6/uL (4.70-6.10)
[2017-03-15 14:11] LABS: VENOUS PH 7.53 (7.32-7.42)
--- NOTE | 2017-03-15 14:17 | EKG ---
[address] [address] Measurements Intervals [place] Rate: 103 P: 64 PA: 159 QRS: 64 QRSD: 90 T: 74 QT: 350 QTc: 409 Interpretive Statements SINUS TACHYCARDIA POSSIBLE INFERIOR MYOCARDIAL INFARCTION [30 ms Q WAVE IN II/aVF], PROBABLY OLD (versus normal septal Q waves) ABNORMAL RHYTHM ECG INTERPRETATION BASED ON A DEFAULT AGE OF 40 YEARS Compared to ECG 01/07/2016 20:06:38 Myocardial infarct finding now present ST (T wave) deviation no longer present Electronically Signed On 03-16-17 12:18:06 MDT by Morgan Aguilar MD [email or web address]
[2017-03-15] MEDS ORDERED: HYDROmorphone 2 MG/1 ML IVP ONE (14:18)
[2017-03-15 14:22] LABS: BLOOD UREA NITROGEN 17 mg/dL (7-22); C-REACTIVE PROTEIN 3.8 mg/dL (0.0-0.9); CALCIUM 8.4 mg/dL (8.7-10.7); EST GLOMERULAR FILTRATION > 60 (>60 ml/min/1.73m(2)); MAGNESIUM 1.9 mg/dL (1.6-2.4); SERUM ALBUMIN 3.5 g/dL (3.5-4.8)
[2017-03-15 14:28] LABS: PLATELET MORPHOLOGY COMMENT NORMAL MORPHOLOGY (NORM); WBC MORPHOLOGY COMMENT NORMAL MORPHOLOGY (NORM)
[2017-03-15 14:29] LABS: RBC MORPHOLOGY COMMENT SEE COMMENTS (NORM)
[2017-03-15] MEDS ORDERED: LORazepam 2 MG/1 ML VIAL IVP ONE (14:29)
[2017-03-15 14:54] LABS: BILIRUBIN,URINE NEGATIVE (NEG); CLARITY,URINE CLEAR (CLEAR); COLOR,URINE YELLOW; GLUCOSE, URINE (UA) NEGATIVE (NEG); NITRATE,URINE NEGATIVE (NEG); OCCULT BLOOD,URINE Trace-intact (NEG); PH,URINE 8.5 (5.0-8.5); PROTEIN,URINE NEGATIVE (NEG); UROBILINOGEN,URINE 0.2 EU/dL (0.2)
[2017-03-15 14:58] LABS: URINE CRYSTALS MANY; URINE SAMPLE TYPE VOIDED SPECIMEN
--- NOTE | 2017-03-15 15:01 | DI ---
XR CXR 1VW,03/15/2017 1:50 PM: Clinical History: Chest pain Previous Exam: November 11, 2016 Findings: A single frontal radiograph of the chest is obtained, and demonstrates stable decreased lung volumes of the right midlung with some blunting of the right costophrenic angle. Postsurgical changes are noted of the spine. There is also an epidural stimulator device. Impression: No significant change compared with the prior exam.
[2017-03-15 15:18] VITALS: RESP 21; TEMP 97.9
--- NOTE | 2017-03-15 15:40 | DI ---
CT CTA CHEST NONCORONARY W/WO,03/15/2017 2:29 PM: Clinical History: Chest pain and elevated d-dimer. Previous Exam: November 11, 2016 Findings: Multiple helically acquired CT images are obtained through the chest following the intravenous admini stration of contrast, and demonstrate subsegmental atelectasis within the right lung base. There are multiple healing left posterior lateral rib fractures and right anterior lateral rib fractu res. The thyroid is unremarkable. Pulmonary arteries are normal without filling defect or truncation to suggest pulmonary embolism. There are compression deformities of the midthoracic spine which were also seen on the prior exam. Ho wever, there is some increasing compression of the cervix thoracic vertebral body. The compression of the eighth and seventh vertebral bodies is preserved. There is a stable epidural stimulator device. Impression: 1. No evidence of pulmonary embolism. 2. Airspace disease within the right lung base most consistent with subsegmental atelectasis. 3. Compression deformities of the midthoracic spine with interval increasing compression of the sixth thoracic vertebral body. 4. Multiple stable healing bilateral rib fractures.
--- NOTE | 2017-03-15 15:43 | DI ---
CT ABD W/CN AND PELVIS W/CN,03/15/2017 1:50 PM: Clinical History: Right upper quadrant pain Previous Exam: November 12, 2016 Findings: Multiple helically acquired CT images are obtained through the abdomen and pelvis following the intra venous administration of contrast, and demonstrate subsegmental atelectasis predominantly within the right lung base. The liver is unremarkable and stable when compared with the prior exam. Patient is status post cholecystectomy. The spleen, adrenals and kidneys are unremarkable. The heart is normal except for some coronary artery calcifications. The pancreas is unremarkable. Peripheral vascular calcifications are seen. There is motion artifact n oted. Postsurgical changes of the lower lumbar spine are seen. There is no mesenteric or retroperitoneal lymphadenopathy. There is a large amount of air within the colon with dried stool throughout the colon. There is no evidence of small bowel obstruction. Impression: 1. Large amount of air within the colon which right stool throughout.
== END 2017-03-15 17:01 | disposition home or self-care (01) ==
LOC: ER 13:25
DX: S22.32XD Fracture of one rib, left side, subsequent encounter for fracture with routine healing (principal); S22.31XD Fracture of one rib, right side, subsequent encounter for fracture with routine healing; J44.9 Chronic obstructive pulmonary disease, unspecified; R10.11 Right upper quadrant pain; R51 Headache; R79.1 Abnormal coagulation profile; R07.9 Chest pain, unspecified
CPT/HCPCS: 36415; 71010; 71275; 74177; 80053; 81001; 81003; 82803; 83605; 83735; 84484; 85025; 85379; 86140; 93005; 93010; 96361; 96374; 96375; 99284; J1170; J1885; J2060; J2405; J7030

== ENCOUNTER 2017-03-16 13:23 | Inpatient (IN) | payer BC, OTHER ==
[2017-03-16] MEDS ORDERED: IPRATROPIUM/ALBUTEROL SULFATE 3 ML NEB NEB ONE (13:53)
[2017-03-16] MEDS ORDERED: Sodium Chloride 0.9% 1,000 ML PRIMARY IV ONE (13:53)
[2017-03-16] MEDS ORDERED: NORMAL SALINE 10 ML SYRINGE FLUSH IVP PRN (13:53)
[2017-03-16 14:16] LABS: BASOPHILS # (AUTO) 0.02 10*3/UL; BASOPHILS % (AUTO) 0.2 % (0-1); EOSINOPHILS # (AUTO) 0.03 10*3/UL; EOSINOPHILS % (AUTO) 0.2 % (0-8); HEMATOCRIT 38.2 % (42.0-52.0); HEMOGLOBIN 11.2 g/dL (14.0-18.0); LYMPHOCYTES # (AUTO) 0.27 10*3/uL; MEAN CORPUSCULAR HEMOGLOBIN 29.5 PG (27-31); MEAN CORPUSCULAR HGB CONC 29.3 g/dL (33-37); MEAN CORPUSCULAR VOLUME 100.5 FL (80-90); MEAN PLATELET VOLUME 9.1 FL (7.4-12.2); MONOCYTES # (AUTO) 0.41 10*3/UL (0.3-0.8); MONOCYTES % (AUTO) 3.2 % (5-15); NEUTROPHILS # (AUTO) 11.89 10*3/UL; NEUTROPHILS % (AUTO) 93.9 % (50-80)
[2017-03-16 14:20] LABS: VENOUS PH 7.39 (7.32-7.42)
[2017-03-16 14:22] LABS: PLATELET MORPHOLOGY COMMENT NORMAL MORPHOLOGY (NORM); RBC MORPHOLOGY COMMENT NORMAL MORPHOLOGY (NORM); WBC MORPHOLOGY COMMENT NORMAL MORPHOLOGY (NORM)
[2017-03-16 14:26] LABS: BLOOD UREA NITROGEN 16 mg/dL (7-22); BUN/CREATININE RATIO 26.66 (6-20); CALCIUM 8.6 mg/dL (8.7-10.7); EST GLOMERULAR FILTRATION > 60 (>60 ml/min/1.73m(2)); SERUM ALBUMIN 3.5 g/dL (3.5-4.8)
[2017-03-16 14:34] LABS: C-REACTIVE PROTEIN 3.1 mg/dL (0.0-0.9); MAGNESIUM 1.9 mg/dL (1.6-2.4)
--- NOTE | 2017-03-16 14:47 | DI ---
XR CXR 2VW PA/LAT,03/16/2017 1:53 PM: Clinical History: Dyspnea Previous Exam: March 15, 2017 Findings: PA and lateral views of the chest are obtained, and demonstrate stable increased AP dimension of the chest. There is stable airspace disease within the right lung base which appears to just be projectio nal. Stable postsurgical changes of the cervical spine and there is an epidural stimulator device noted wi thin the thoracic spine. Postsurgical changes are seen and there is stable low volume of the right hemithorax. Impression: No acute disease.
[2017-03-16] MEDS ORDERED: Levofloxacin 750mg (Premix) 750 MG in Dextrose 1 BAG IV ONE (15:05)
[2017-03-16] MEDS ORDERED: oxyCODONE IR Tab 5 MG TAB PO ONE (15:20)
[2017-03-16] MEDS ORDERED: oxyCODONE IR Tab 15 MG TAB PO ONE (15:23)
[2017-03-16] MEDS ORDERED: HYDROmorphone 2 MG/1 ML IVP ONE ×4 (15:26→17:17)
[2017-03-16 15:29] LABS: ABG PH 7.27 (7.35-7.45); COLLECTION SITE R RADIAL
[2017-03-16 15:30] LABS: ABG BASE EXCESS 18 MMOL/L (-2-2); ABG OXYGEN SATURATION 90 % (90-100); ABG PCO2 100 MMHG (34-38); ABG PO2 72 MMHG (65-75); ALLEN TEST Y
[2017-03-16] MEDS ORDERED: HYDROmorphone 2 MG/1 ML ONE (15:32)
[2017-03-16 15:53] LABS: ABG PCO2 109 MMHG (34-38); ABG PH 7.22 (7.35-7.45); ABG PO2 78 MMHG (65-75); COLLECTION SITE R RADIAL
[2017-03-16 15:54] LABS: ABG BASE EXCESS 16 MMOL/L (-2-2); ABG OXYGEN SATURATION 90 % (90-100); ALLEN TEST N
[2017-03-16] MEDS ORDERED: LIDOCAINE W/ SODIUM BICARB 0.5 ML SYR SUBD PRN (16:27)
[2017-03-16] MEDS ORDERED: MORPHINE SULFATE 10 MG/1 ML NEB PRN (16:27)
[2017-03-16] MEDS ORDERED: Levofloxacin 750mg (Premix) 750 MG in Dextrose 1 BAG IV SCH (16:27)
[2017-03-16 16:56] LABS: ABG BASE EXCESS 16 MMOL/L (-2-2); ABG OXYGEN SATURATION 93 % (90-100); ABG PCO2 94 MMHG (34-38); ABG PH 7.27 (7.35-7.45); ABG PO2 80 MMHG (65-75); ALLEN TEST N; COLLECTION SITE R RADIAL
--- NOTE | 2017-03-16 17:09 | PDOC ---
History and Physical - History of Present Illness History of Present Illness: This very nice 61-year-old gentleman with past medical history significant for emphysema, history of lung cancer with a right upper lobectomy, and cholecystectomy comes in because of feeling shortness of breath, right upper quadrant pain over the last 2 or 3 days was seen in the ER yesterday and discharged home after he comes back today with respiratory failure and COPD exacerbation with pH is 7.22 and a CO2 of 99 in the ER he was started with Vapotherm repeat gases showed CO2 of 110 and a worsening pH. I had extensive talks with the family members kids and [id number] and patient himself that the surprisingly still coherent and alert and oriented. He does not want to be intubated or have any CPR done he wants to be a DO NOT RESUSCITATE this was reviewed extensively with family members and patient the plan at present time initially the wanted Vapotherm to be continued I explained to her that in this case BiPAP would be more appropriate because of the high CO2 also patient has chronic pain and to treat his pain which day the family members wanted as well as the patient CO2 would be more appropriate for recurrent decreased respiratory drive. I also had the pulmonary critical care eICU physician Dr. Milton on the video to discuss the therapy options with the family as well and at this point we will proceed with pain control and BiPAP. All in agreement Past Medical History Medical History: 1. History of lung cancer status post right upper lobe lobectomy and chemotherapy. 2. COPD, this is end-stage. 3. Depression with anxiety, on multiple antidepressants including Effexor, Prozac, and Wellbutrin. 4. Chronic pain syndrome related to failed back syndrome. 5. Right lower extremity foot drop, with chronic right great toe plantar stage IV ulcer, present on admission. 6. Brice's Esophagitis. 7. Steroid dependence Surgical History: 1. Bilateral knee scopes. 2. Bilateral shoulder stones. 3. Right upper lobe lobectomy. 4. Tonsillectomy. 5. Cholecystectomy. 6. Failed back which 3 surgeries in the past Pertinent Family History: Patient denies any diabetes or heart disease in the family. Past Social History: Patient used to smoke, but quit 6 years ago. Quit drinking alcohol in the past. . Has 2 children. 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 Tobacco Use: Former Smoker Substance Use Type: None Medication / Allergies Home Medications: Home Medications Medication Instructions Recorded Confirmed Type Bupropion HCl [Wellbutrin Sr] 150 mg ORAL BID tab 06/04/11 03/16/17 History Gabapentin 300 mg PO BID 09/17/11 03/16/17 History Methadone HCl 5 mg PO BID 09/17/11 03/16/17 History Oxycodone HCl 20 mg ORAL q four hours PRN tab 09/17/11 03/16/17 History Lidocaine HCl [Lidocaine HCl 15 ml PO Q4H PRN #3 ml 05/25/16 03/16/17 Clinic Viscous] Ondansetron HCl [Zofran] 1 tab PO Q8H PRN #30 tab 05/25/16 03/16/17 Clinic Fluoxetine HCl [Prozac] 1 cap ORAL QD #0 capsule 10/27/16 03/16/17 Clinic Albuterol Sulfate [Proair Hfa] 1 - 2 puff INH Q4-6H PRN #3 inhaler 11/18/1603/27 Clinic Budesonide/Formoterol Fumarate 2 puff INH BID #3 inh 11/18/16 03/16/17 Clinic [Symbicort] Potassium Chloride 1 tab PO q mid AM #120 tab 11/18/16 03/16/17 Clinic Tiotropium [place] [Spiriva] 1 puff INH DAILY #90 inh 11/18/16 03/16/17 Clinic Omeprazole 1 cap PO BID #60 cap 12/02/16 03/16/17 Clinic Albuterol Neb Soln 0.083% 3 ml INH QID #120 vial 12/25/16 03/16/17 Clinic Azithromycin 1 tab PO DAILY #30 tab 12/25/16 03/16/17 Clinic Lidocaine 1 patch TRANSDERM DAILY #10 patch 12/29/16 03/16/17 Clinic Albuterol/Ipratrop Neb Soln 1 vial INH Q4-6HRSPRN #360 box 01/13/17 03/16/17 Clinic [Duoneb Neb Soln] Diclofenac Sodium 2 - 4 gm TP QID #300 gm 01/14/17 03/16/17 Clinic predniSONE Tab [Deltasone Tab] 3 tab PO DAILY #60 tab 01/19/17 03/16/17 Clinic Sodium Chloride For Inhalation 1 vial INH Q6H PRN #360 vial 02/09/17 03/16/17 Clinic [Sodium Chloride] Furosemide 1 tab PO q mid AM #120 tab 03/15/17 03/16/17 Clinic Morphine Inj [morphine Inj] 5 mg NEB Q4H PRN PRN 03/15/17 03/16/17 History Oxycodone HCl [Oxycontin] 30 mg PO BID 03/16/17 03/16/17 History Allergies/Adverse Reactions: Allergies Allergy/AdvReac Type Severity Reaction Status Date / Time Benzodiazepines AdvReac Intermediate NOT Verified 03/15/17 14:30 APPLICABLE cyclobenzaprine HCl AdvReac Intermediate HALLUCINATI Verified 03/15/17 14:30 [From Flexeril] ONS pregabalin [From Lyrica] AdvReac Intermediate SWELLING Verified 03/15/17 13:36 Review of Systems - Review of Systems All Systems: Reviewed & No Additional Complaints Except as Stated - Respiratory Respiratory: REPORTS: Dyspnea At Rest, Dyspnea with Exertion - Gastrointestinal Gastrointestinal / Abdominal: REPORTS: Nausea, Constipation Exam - Vitals Vital Signs: Vital Signs Temperature 97 F Temperature Source Temporal Artery Scan Pulse Rate 118 Respiratory Rate 20 Blood Pressure 128/46 Pulse Ox 94 - General General Appearance: POSITIVE: Mild Distress - Head Head Exam: POSITIVE: Normal Inspection, Normocephalic, Atraumatic - Eye Eye Exam: POSITIVE: PERRL - Neck Neck Exam: POSITIVE: Normal Inspection - Respiratory Additional Respiratory Exam Details: Decreased breath sounds bilaterally - Cardiovascular Cardiovascular Exam: POSITIVE: RRR, No Murmur, No Clicks, No Gallops - GI/Abdominal GI/Abdominal Exam: POSITIVE: Normal Bowel Sounds, Non Tender, Non Distended, Soft - Extremities Extremities Exam: POSITIVE: Normal Inspection, Normal Capillary Refill, No Clubbing Present, No Edema Present - Neurological Neurological Exam: POSITIVE: Alert, Oriented x 3 Results - Labs CBC and BMP: 03/16/17 13:54 03/16/17 14:10 Labs - Last 24 Hours: Laboratory Results 03/16/17 03/16/17 Range/Units 15:39 16:25 ABG pH 7.22 L 7.27 L (7.35-7.45) ABG pCO2 109 H 94 H (34-38) MMHG ABG pO2 78 H 80 H (65-75) MMHG ABG HCO3 44 H 43 H (22-26) ABG Total CO2 47 H 46 H (23-27) MMOL/L ABG O2 Saturation 90 93 (90-100) % ABG Base Excess 16 H 16 H (-2-2) MMOL/L Compa Test N N FiO2 65% vapotherm 65% vapotherm Assessment and Plan - Patient Problems (1) Broken ribs Current Visit: No Status: Acute (2) COPD exacerbation Current Visit: No Status: Acute (3) Chronic pain syndrome Current Visit: No Status: Chronic - Assessment / Plan Additional Assessment/Plan Details: #1 acute respiratory failure with hypercapnia with elevated CO2 of 110 with acidosis see HPI after long discussion with the family and pulmonary critical care we are going to start BiPAP and pain control. Steroids and antibiotics E before meals will be managing this as well. He is also DO NOT RESUSCITATE. Also continue respiratory treatments as needed
[2017-03-16] MEDS: HYDROmorphone 2 MG/1 ML IVP PRN ×6 (17:46→23:30)
[2017-03-16] MEDS: IPRATROPIUM/ALBUTEROL SULFATE 3 ML NEB NEB SCH ×2 (19:00→23:40)
[2017-03-16] MEDS: methylPREDNISolone 40 MG/1 ML VIAL IVP SCH (19:00)
[2017-03-16] MEDS ORDERED: LORazepam 2 MG/1 ML VIAL IVP SCH (20:00)
[2017-03-16] MEDS ORDERED: LORazepam 2 MG/1 ML VIAL ONE (20:07)
[2017-03-16] MEDS ORDERED: MORPHINE SULFATE 4 MG/1 ML NEB PRN (20:25)
[2017-03-16] MEDS ORDERED: LORazepam 2 MG/1 ML VIAL IVP PRN (21:21)
[2017-03-16] MEDS: OMEPRAZOLE 20 MG CAPSULE PO SCH (22:08)
[2017-03-16] MEDS: BuPROPion SR Tab 150 MG TAB PO SCH (22:08)
[2017-03-16] MEDS: GABAPENTIN 300 MG CAPSULE PO SCH (22:09)
[2017-03-16] MEDS: OXYCODONE PO SCH ×2 (22:09)
[2017-03-16] MEDS: oxyCODONE ER 10 MG TAB PO SCH (22:09)
[2017-03-16] MEDS: METHADONE 5 MG PO SCH (22:10)
[2017-03-16 23:10] LABS: ABG BASE EXCESS 14 MMOL/L (-2-2); ABG PCO2 91 MMHG (34-38); ABG PH 7.26 (7.35-7.45); ABG PO2 94 MMHG (65-75); COLLECTION SITE R arterial X1
[2017-03-16 23:11] LABS: ABG OXYGEN SATURATION 95 % (90-100)
--- NOTE | 2017-03-16 23:29 | PDOC ---
Dyspnea HPI - General Chief Complaint: Dyspnea Stated Complaint: respirtatory issues Date Seen by Provider: 03/16/17 Time Seen by Provider: 13:40 Source: POSITIVE: Patient, Spouse Exam Limitations: POSITIVE: No limitations Treatment Prior to Arrival: REPORTS: Oxygen, Albuterol Neb Treatment Nurse's Notes Reviewed & Considered: Yes - History of Present Illness Initial Comments: The patient is a 61-year-old male. He has a long-standing history of COPD. He states that for the past day he has had increased shortness of breath. He was seen in the emergency room yesterday for similar symptoms. His d-dimer was elevated yesterday and he underwent a CTA of the chest yesterday which showed no pulmonary emboli. He has severe COPD, especially on the right. Old rib fractures were identified and compression fractures of some thoracic vertebra were identified. Patient is steroid dependent. He has a history of having been diagnosed with cancer of the right lung and underwent a right upper lobe resection 6 years ago. He smoked up until 6 years ago. He is on 5 L of oxygen continuously, and more as necessary. He was being cared for by a sheet metal worker supervisor in [place] according to patient's , but he is no longer seeing this specialist because a sheet metal worker supervisor reportedly told the and patient that "there is nothing more I can do for him". Patient has been severely dyspneic all morning. Patient has a DO NOT RESUSCITATE CODE STATUS. Body Location Affected: REPORTS: Chest Timing: REPORTS: Gradual, Getting Worse Duration: >24 hours Severity: Severe Quality: REPORTS: "Pain" (Some back pain.) Initiating Event: REPORTS: Aspiration ( thinks that the patient may have aspirated.) Context: REPORTS: Rest Exacerbated By: REPORTS: Exertion Associated Symptoms: REPORTS: Productive Cough. DENIES: Fever, Chills, Sweating , Chest Pain, Chest Discomfort, Left Chest, Right Chest, Central Chest, Chest Heaviness, Chest Tightness, Painful Breathing, Radiation to Back, Radiation to Jaw, Radiation to Arm, Bloody Cough, Heart Racing, Leg Pain, Calf Pain, Ankle Swelling, Leg Swelling, Dizziness, Light-Headedness, Anxiety, Tingling - Hands, Tingling - Face, Muscle Spasms - Hands, Muscle Spasms - Feet Similar Symptoms Previously: Yes Recently seen/treated/hospitalized: Yes Any Prior Injuries Related to Current Complaint?: No - Patient Home Medications Home Medications: Home Medications Bupropion HCl [Wellbutrin Sr] 150 mg ORAL BID tab 06/04/11 Gabapentin 300 mg PO BID 09/17/11 Methadone HCl 5 mg PO BID 09/17/11 Oxycodone HCl 20 mg ORAL q four hours PRN tab 09/17/11 Lidocaine HCl [Lidocaine HCl Viscous] 15 ml PO Q4H PRN #3 ml 05/25/16 Ondansetron HCl [Zofran] 1 tab PO Q8H PRN #30 tab 05/25/16 Fluoxetine HCl [Prozac] 1 cap ORAL QD #0 capsule 10/27/16 Albuterol Sulfate [Proair Hfa] 1 - 2 puff INH Q4-6H PRN #3 inhaler 11/18/16 Budesonide/Formoterol Fumarate [Symbicort] 2 puff INH BID #3 inh 11/18/16 Potassium Chloride 1 tab PO q mid AM #120 tab 11/18/16 Tiotropium [place] [Spiriva] 1 puff INH DAILY #90 inh 11/18/16 Omeprazole 1 cap PO BID #60 cap 12/02/16 Albuterol Neb Soln 0.083% 3 ml INH QID #120 vial 12/25/16 Azithromycin 1 tab PO DAILY #30 tab 12/25/16 Lidocaine 1 patch TRANSDERM DAILY #10 patch 12/29/16 Albuterol/Ipratrop Neb Soln [Duoneb Neb Soln] 1 vial INH Q4-6HRSPRN #360 box 02/24 Diclofenac Sodium 2 - 4 gm TP QID #300 gm 01/14/17 predniSONE Tab [Deltasone Tab] 3 tab PO DAILY #60 tab 01/19/17 Sodium Chloride For Inhalation [Sodium Chloride] 1 vial INH Q6H PRN #360 vial Furosemide 1 tab PO q mid AM #120 tab 03/15/17 Morphine Inj [morphine Inj] 5 mg NEB Q4H PRN PRN 03/15/17 Oxycodone HCl [Oxycontin] 30 mg PO BID 03/16/17 - Patient Allergies Allergies/Adverse Reactions: Allergies Allergy/AdvReac Type Severity Reaction Status Date / Time Benzodiazepines AdvReac Intermediate NOT Verified 03/15/17 14:30 APPLICABLE cyclobenzaprine HCl AdvReac Intermediate HALLUCINATI Verified 03/15/17 14:30 [From Flexeril] ONS pregabalin [From Lyrica] AdvReac Intermediate SWELLING Verified 03/15/17 13:36 Past Medical History - heen HEENT History: Denies History, Hard of Hearing, Chipped or Loose Teeth Cardiovascular History: Hypertension, Hyperlipidemia Respiratory History: Asthma, COPD, Shortness of Breath, Sleep Apnea, Home CPAP Use, Snoring, Other (please comment) Additional Respiratory History: 3L O2 WITH CPAP. LUNG CANCER RIGHT UPPER LOBE, RIGHT UPPER LOBECTOMY Gastrointestinal History: GERD, Other (please comment) Additional Gastrointestinal History: BARRETTS ESOPHAGUS Genitourinary History: Denies History Endocrine History: Denies History Musculoskeletal History: Back Pain, Back Injury, Muscle Weakness, Paralysis Prosthesis or Implant: Yes (HARDWARE IN BACK SPINAL STIMULATOR L BUTTOCK) Additional Musculoskeletal History: HAS NUMBNESS WEAKNESS IN R LEG AND FOOT / DROP FOOT RIGHT SIDE, DUE TO BACK SURGERY Neurological History: Denies History Blood Disorders: Denies History Psychiatric History: Depression, Anxiety Disorders, PTSD Additional Psychiatric History: HX ALCOHOLISM History of Sexually Transmitted Diseases: No Cancer History: Lung Cancer Treatment / Date(s) of Treatment: R UPPER LOBECTOMY WITH 4 CHEMO TX'S In Past Year Been Physically Harmed or Verbally Threatened: No History of MDRO: No History of Other Communicable Diseases: No Tobacco Use: Former Smoker Alcohol Use: Sober Substance Use Type: None Previous Surgical History: Yes Type / Date of Surgery: LAMINECTOMY/R UPPER LOBECTOMY/VERTEBRAL FUSION/3 NECK FUSIONS/TONSILS/KAUSHIK/BILAT KNEE SCOPES Anesthesia Reactions: Yes (HYPOTENSIVE) Malignant Hyperthermia: No Significant Family History: Asthma, COPD, Lung disease, Vascular disease Past Medical History Reviewed: Reviewed - No Changes ROS - Limitations ROS Limitations: Clinical Condition (Dyspnea) Constitution: REPORTS: Weakness Cardiovascular: REPORTS: Denies Cardiac Symptoms Respiratory: REPORTS: Cough Productive, Shortness Of Breath Neurological: REPORTS: Denies Neuro Symptoms Gastrointestinal: REPORTS: Denies GI Symptoms Endocrine: REPORTS: Denies Symptoms Musculoskeletal: REPORTS: Denies MS Symptoms Genitourinary: REPORTS: Denies Symptoms Eyes: REPORTS: Denies Symptoms ENT: REPORTS: Denies Symptoms Skin: REPORTS: Denies Skin Symptoms Lympathic: REPORTS: Denies Lympathic Symptoms Immunologic: POSITIVE: Denies Symptoms Psychiatric: POSITIVE: Denies Psych Symptoms Dyspnea Physical Exam - General Appearance General Appearance: REPORTS: Alert, Cooperative, No Evidence of Trauma, Severe Distress ([place] dyspnea and respiratory distress). DENIES: No Acute Distress - HEENT HEENT: POSITIVE: Head Inspection Nml, Eyes Inspection Nml, Ears Inspection Nml, Nose Inspection Nml, Oral/Dental Inspect. Nml, Pharynx Inspect. Nml, PERRL, EOMI - Neck Neck: REPORTS: Normal Inspection, No Carotid Bruit - Respiratory Respiratory: REPORTS: No Pain on Inspiration, Respiratory Distress, Fatigue, Rales, Rhonchi, Speaks Broken Sentences. DENIES: No Respiratory Distress, Breath Sounds Normal (Marked rales and rhonchi both lung zimmerman, especially on the right), No Pleuritic Chest Pain, Speaks Full Sentences, Wheezes, Prolonged Expirations, Accessory Muscle Use, Retractions, Splinting, Dull on Percussion, Decreased Air Movement, Chest Wall Tenderness, Stridor, Respiratory Failure - Cardiovascular Cardiovascular: REPORTS: Regular Rate and Rhythm, Heart Sounds Normal, Equal Pulses, Strong Pulses, No Murmur, No Gallop, No Friction Rub, No JVD Peripheral Pulses: Radial (R): 2+, Radial (L): 2+ - Abdomen Abdomen: Soft: (All Quadrants), Normal Bowel Sounds: (All Quadrants), Denies Tenderness: (All Quadrants), No Splenomegaly: (All Quadrants), No Hepatomegaly: (All Quadrants), No Guarding: (All Quadrants), No Rebound: (All Quadrants), No Palpable Pulse: (All Quadrants), No Palpabale Mass: (All Quadrants), No Distention: (All Quadrants), No Rigidity: (All Quadrants) - Skin Skin: REPORTS: Intact, Normal For Race, Warm, Dry, No Rash - Extremities Extremity: Non-Tender: (All Extremities), Normal ROM: (All Extremities), Normal Inspection: (All Extremities) - Neurological / Psychological Neurological: POSITIVE: Oriented X3, manufacturing engineer assembly Normal As Tested, Motor Normal, Sensation Normal, 5, 6 Dyspnea Progress - Results Reviewed by me Xrays/CTs/US Reviewed by me: Yes Discussed with Radiologist: Yes Radiology Findings: Severe COPD, especially on the right. Radiologist states he cannot rule out some infiltrate, states he does not feel it is much change from yesterday's chest x-ray. Lab Results Reviewed: Yes Lab Results:: Laboratory Results 03/16/17 03/16/17 03/16/17 Range/Units 13:54 14:00 14:03 WBC 12.67 H (4.8-10.8) 10^3/uL RBC 3.80 L (4.70-6.10) 10^6/uL Hgb 11.2 L (14.0-18.0) g/dL Hct 38.2 L (42.0-52.0) % MCV 100.5 H (80-90) FL MCH 29.5 (27-31) PG MCHC 29.3 L (33-37) g/dL RDW Std Deviation 55.6 H (39-50) fL RDW Coeff of Yumiko 15.3 H (11.5-14.5) % Plt Count 282 (140-350) 10*3/uL MPV 9.1 (7.4-12.2) FL Immature Gran % (Auto) 0.4 (0-5) % Neut % (Auto) 93.9 H (50-80) % Lymph % (Auto) 2.1 L (10-50) % [place] % (Auto) 3.2 L (5-15) % Eos % (Auto) 0.2 (0-8) % Baso % (Auto) 0.2 (0-1) % Immature Gran # (Auto) 0.05 10*3/UL Neut # (Auto) 11.89 10*3/UL Lymph # (Auto) 0.27 10*3/uL [place] # (Auto) 0.41 (0.3-0.8) 10*3/UL Eos # (Auto) 0.03 10*3/UL Baso # (Auto) 0.02 10*3/UL WBC Morphology Comment Normal morphology (NORM) Plt Morphology Comment Normal morphology (NORM) RBC Morph Comment Normal morphology (NORM) D-Dimer (0.00-0.59) mg/L ABG pH (7.35-7.45) ABG pCO2 (34-38) MMHG ABG pO2 (65-75) MMHG ABG HCO3 (22-26) ABG Total CO2 (23-27) MMOL/L ABG O2 Saturation (90-100) % ABG Base Excess (-2-2) MMOL/L Compa Test VBG pH 7.39 (7.32-7.42) VBG pCO2 73 H (45-55) mmHg VBG HCO3 44 H (22-26) mmol/L VBG Base Excess 19 H (-2-2) MMOL/L FiO2 Sodium (135-145) meq/L Potassium (3.8-5.2) meq/L Chloride (98-112) meq/L Carbon Dioxide (23-33) meq/L Anion Gap (5-20) BUN (7-22) mg/dL Creatinine (0.70-1.50) mg/dL Estimated GFR (>60 ml/min/1.73m(2)) BUN/Creatinine Ratio (6-20) Glucose (78-110) mg/dL Calculated Osmolality (267-292) mOsm/kg Lactic Acid (0.70-2.10) MMOL/L Calcium (8.7-10.7) mg/dL Magnesium (1.6-2.4) mg/dL Total Bilirubin (0.3-1.2) mg/dL AST (21-57) IU/L ALT (21-72) IU/L Alkaline Phosphatase (38-126) IU/L C-Reactive Protein (0.0-0.9) mg/dL NT-Pro-B Natriuret Pep 118 (0-125) PG/ML Total Protein (6.1-8.0) g/dL Albumin (3.5-4.8) g/dL Globulin (2.50-4.10) g/dL Albumin/Globulin Ratio (1.3-2.0) mg/g 03/16/17 03/16/17 Range/Units 14:10 14:48 WBC (4.8-10.8) 10^3/uL RBC (4.70-6.10) 10^6/uL Hgb (14.0-18.0) g/dL Hct (42.0-52.0) % MCV (80-90) FL MCH (27-31) PG MCHC (33-37) g/dL RDW Std Deviation (39-50) fL RDW Coeff of [place]um[place] (11.5-14.5) % Plt Count (140-350) 10*3/uL MPV (7.4-12.2) FL Immature Gran % (Auto) (0-5) % Neut % (Auto) (50-80) % Lymph % (Auto) (10-50) % [place] % (Auto) (5-15) % Eos % (Auto) (0-8) % Baso % (Auto) (0-1) % Immature Gran # (Auto) 10*3/UL Neut # (Auto) 10*3/UL Lymph # (Auto) 10*3/uL [place] # (Auto) (0.3-0.8) 10*3/UL Eos # (Auto) 10*3/UL Baso # (Auto) 10*3/UL WBC Morphology Comment (NORM) Plt Morphology Comment (NORM) RBC Morph Comment (NORM) D-Dimer 1.98 H (0.00-0.59) mg/L ABG pH 7.27 L (7.35-7.45) ABG pCO2 100 H (34-38) MMHG ABG pO2 72 (65-75) MMHG ABG HCO3 45 H (22-26) ABG Total CO2 48 H (23-27) MMOL/L ABG O2 Saturation 90 (90-100) % ABG Base Excess 18 H (-2-2) MMOL/L Compa Test Y VBG pH (7.32-7.42) VBG pCO2 (45-55) mmHg VBG HCO3 (22-26) mmol/L VBG Base Excess (-2-2) MMOL/L FiO2 9lpm sm Sodium 137 (135-145) meq/L Potassium 4.0 (3.8-5.2) meq/L Chloride 89 L (98-112) meq/L Carbon Dioxide 41 H (23-33) meq/L Anion Gap 7 (5-20) BUN 16 (7-22) mg/dL Creatinine 0.6 L (0.70-1.50) mg/dL Estimated GFR > 60 (>60 ml/min/1.73m(2)) BUN/Creatinine Ratio 26.66 H (6-20) Glucose 183 H (78-110) mg/dL Calculated Osmolality 289.0 (267-292) mOsm/kg Lactic Acid 1.0 (0.70-2.10) MMOL/L Calcium 8.6 L (8.7-10.7) mg/dL Magnesium 1.9 (1.6-2.4) mg/dL Total Bilirubin 0.3 (0.3-1.2) mg/dL AST 31 (21-57) IU/L ALT 31 (21-72) IU/L Alkaline Phosphatase 118 (38-126) IU/L C-Reactive Protein 3.1 H (0.0-0.9) mg/dL NT-Pro-B Natriuret Pep (0-125) PG/ML Total Protein 6.2 (6.1-8.0) g/dL Albumin 3.5 (3.5-4.8) g/dL Globulin 2.7 (2.50-4.10) g/dL Albumin/Globulin Ratio 1.20 L (1.3-2.0) mg/g - Patient's Progress Pain Medication Addressed: POSITIVE: Yes School/Work Release Addressed: POSITIVE: Not Applicable Re-Examine Time: 14:10 Re-Examine Comment: Venous blood gas shows a pH of 7.39, PCO2 72. Arterial blood gas shows patient to be in respiratory acidosis with a pH of 7.266, PCO2 99, PO2 72 on nonrebreather mask. Recommended BiPAP to patient and . , who is respiratory therapist, requests that Vapotherm be tried first. Re-Examine Time:: 15:05 Re-Examine Comment: Severity of condition discussed with patient and . Secured documentation that the patient has a DO NOT RESUSCITATE status. Case discussed with hospitalist, Dr. Owens, and patient admitted by Dr. Owens for further evaluation and treatment. Blood cultures have been drawn. Patient started on Levaquin 750 mg IV. Patient also given DuoNeb by nebulization. Oxygen saturation on patient's arrival was 70%. On supplemental oxygen oxygen saturation between 90-94%. Status: POSITIVE: Unchanged, Re-Examined Air Movement: POSITIVE: Poor - Consult Consult (If Yes, Name of Consulting MD & Time Called): Yes (Dr. Owens, hospitalist, [id number]) Consulting MD will see pt:: POSITIVE: [facility] [place] Admit Counseled: POSITIVE: Patient, Family, RE: Lab Results, RE: Radiology Results, RE : DX, RE: Need for F/U Patient Care Time - Estimated PCT Patient Care Time (In Minutes): 70 Vital Signs - Recent Vital Signs Vital Signs: Vital Signs (Last 8 hours) Pulse Ox 03/16/17 15:45 95 - VS Reviewed Vital Signs Reviewed: Yes Critical Care Note - Critical Care Note Total Time (mins): 70 Critical Care: Recurrent Physical Assessment Required, Respiratory Failure, Life Threatening Scenario, Interpretation of Labs - Management Adjusted Based on Results, Interpretation Imaging Studies - Management Adjusted Based on Results History Source: Patient, Family () Discussion with Family: Discussion with Helper Electrical: Dr. Pryor, hospitalist Discharge Clinical Impression: Respiratory insufficiency, Respiratory failure, Chronic obstructive pulmonary disease Discharge Disposition: Admit to Inpatient Condition: Critical Date Decision to Admit to Inpatient: 03/16/17 Time Decision to Admit to Inpatient: 14:50
[2017-03-17] MEDS: methylPREDNISolone 40 MG/1 ML VIAL IVP SCH ×3 (00:46→12:11)
[2017-03-17] MEDS: HYDROmorphone 2 MG/1 ML IVP PRN ×12 (01:00→22:32)
[2017-03-17] MEDS: IPRATROPIUM/ALBUTEROL SULFATE 3 ML NEB NEB SCH ×6 (03:10→23:39)
[2017-03-17 05:06] LABS: BLOOD UREA NITROGEN 17 mg/dL (7-22); CALCIUM 8.7 mg/dL (8.7-10.7); EST GLOMERULAR FILTRATION > 60 (>60 ml/min/1.73m(2))
[2017-03-17] MEDS: LORazepam 2 MG/1 ML VIAL IVP PRN ×4 (05:22→19:46)
[2017-03-17 08:11] LABS: ABG BASE EXCESS 15 MMOL/L (-2-2); ABG OXYGEN SATURATION 95 % (90-100); ABG PCO2 64 MMHG (34-38); ABG PO2 81 MMHG (65-75); COLLECTION SITE L RADIAL
[2017-03-17 08:12] LABS: ALLEN TEST Y
[2017-03-17] MEDS: NORMAL SALINE 10 ML SYRINGE FLUSH IVP PRN ×5 (08:12→17:48)
[2017-03-17] MEDS: oxyCODONE ER 10 MG TAB PO SCH (08:49)
[2017-03-17] MEDS: BuPROPion SR Tab 150 MG TAB PO SCH ×2 (08:49→09:19)
[2017-03-17] MEDS: OMEPRAZOLE 20 MG CAPSULE PO SCH (08:49)
[2017-03-17] MEDS: METHADONE 5 MG PO SCH (08:49)
[2017-03-17] MEDS: GABAPENTIN 300 MG CAPSULE PO SCH (08:49)
[2017-03-17] MEDS ORDERED: ENOXAPARIN SODIUM 40 MG/0.4 ML SYRINGE SUBCUT SCH (09:00)
[2017-03-17] MEDS ORDERED: FLUoxetine 20 MG CAPSULE PO SCH (09:00)
[2017-03-17] MEDS ORDERED: FUROSEMIDE 40 MG TABLET PO SCH (09:00)
[2017-03-17] MEDS ORDERED: POTASSIUM CHLORIDE 20 MEQ TAB PO SCH (09:00)
[2017-03-17] MEDS: OXYCODONE PO SCH ×2 (09:18)
--- NOTE | 2017-03-17 11:25 | PDOC(PROG) ---
Interval History: Patient is doing better this morning from the hypercapnia standpoint according to ABG is back to his baseline. In regards to his chronic pain he is also back to his baseline as he is at home requiring a lot of pain meds and the anxiety medication I did speak with the daughter and son and they have said that at home he is constantly moving in and out of bed and not really ever fully comfortable. Patient would like to keep on doing this treatment but also to try to treat the pain is much as possible without possibly interfering and suppressing his respirations Objective : Data - Labs CBC and BMP: 03/16/17 13:54 03/17/17 04:35 Labs - Last 24 Hours: Laboratory Results 03/16/17 03/16/17 03/16/17 Range/Units 15:39 16:25 18:40 ABG pH 7.22 L 7.27 L 7.26 L (7.35-7.45) ABG pCO2 109 H 94 H 91 H (34-38) MMHG ABG pO2 78 H 80 H 94 H (65-75) MMHG ABG HCO3 44 H 43 H 41 H (22-26) ABG Total CO2 47 H 46 H 44 H (23-27) MMOL/L ABG O2 Saturation 90 93 95 (90-100) % ABG Base Excess 16 H 16 H 14 H (-2-2) MMOL/L Compa Test N N pass FiO2 65% vapotherm 65% vapotherm 50% via bipap Sodium (135-145) meq/L Potassium (3.8-5.2) meq/L Chloride (98-112) meq/L Carbon Dioxide (23-33) meq/L Anion Gap (5-20) BUN (7-22) mg/dL Creatinine (0.70-1.50) mg/dL Estimated GFR (>60 ml/min/1.73m(2)) BUN/Creatinine Ratio (6-20) Glucose (78-110) mg/dL Calculated Osmolality (267-292) mOsm/kg Calcium (8.7-10.7) mg/dL 03/17/17 03/17/17 Range/Units 04:35 07:58 ABG pH 7.40 (7.35-7.45) ABG pCO2 64 H (34-38) MMHG ABG pO2 81 H (65-75) MMHG ABG HCO3 39.7 H (22-26) ABG Total CO2 42 H (23-27) MMOL/L ABG O2 Saturation 95 (90-100) % ABG Base Excess 15 H (-2-2) MMOL/L Compa Test Y FiO2 50% bipap Sodium 136 (135-145) meq/L Potassium 4.8 (3.8-5.2) meq/L Chloride 94 L (98-112) meq/L Carbon Dioxide 37 H (23-33) meq/L Anion Gap 5 (5-20) BUN 17 (7-22) mg/dL Creatinine 0.5 L (0.70-1.50) mg/dL Estimated GFR > 60 (>60 ml/min/1.73m(2)) BUN/Creatinine Ratio 34.00 H (6-20) Glucose 129 H (78-110) mg/dL Calculated Osmolality 285.0 (267-292) mOsm/kg Calcium 8.7 (8.7-10.7) mg/dL Objective : Exam - General General Appearance: Cooperative - Head Head Exam: Normal Inspection - Respiratory Respiratory Exam: Decreased Breath Sounds - Cardiovascular Cardiovascular Exam: RRR, No Murmur, No Clicks, No Gallops - GI/Abdominal GI/Abdominal Exam: Normal Bowel Sounds, Non Tender, Soft - Extremities Extremities Exam: Normal Capillary Refill, No Clubbing Present, No Edema Present - Neurological Neurological Exam: Alert, Oriented x 3, CN II-XII Intact, No Facial Droop, Speech Intact / Clear, Moves All Extremities Equally - Psychiatric Psychiatric Exam: Anxious Assessment and Plan - Patient Problems (1) COPD exacerbation Current Visit: No Status: Acute Comment: ABG looks improved we will continue Vapotherm total 2 PM then repeat ABG and make further decision from there if to continue on BiPAP are not continue steroids and antibiotics and resume his usual home meds for pain he is also given some extra as well,. We will discharge from ICU status since his ABG is normalized and is back to his baseline (2) Broken ribs Current Visit: No Status: Acute (3) Chronic pain syndrome Current Visit: No Status: Chronic Comment: Continue home meds
[2017-03-17] MEDS ORDERED: LIDOCAINE W/ SODIUM BICARB 0.5 ML SYR SUBD PRN ×2 (12:04→23:41)
[2017-03-17] MEDS ORDERED: MORPHINE SULFATE 4 MG/1 ML NEB PRN ×2 (12:04→23:41)
[2017-03-17] MEDS ORDERED: DICLOFENAC SODIUM TP SCH (13:00)
[2017-03-17 14:54] LABS: ABG BASE EXCESS 16 MMOL/L (-2-2); ABG OXYGEN SATURATION 95 % (90-100); ABG PCO2 76 MMHG (34-38); ABG PH 7.35 (7.35-7.45); ABG PO2 87 MMHG (65-75); ALLEN TEST Y; COLLECTION SITE L RADIAL
[2017-03-17] MEDS ORDERED: Levofloxacin 750mg (Premix) 750 MG in Dextrose 1 BAG IV SCH (16:27)
[2017-03-17 16:53] LABS: ABG PCO2 83 MMHG (34-38); ABG PH 7.34 (7.35-7.45); ABG PO2 82 MMHG (65-75); COLLECTION SITE L RADIAL
[2017-03-17 16:54] LABS: ABG BASE EXCESS 19 MMOL/L (-2-2); ABG OXYGEN SATURATION 94 % (90-100); ALLEN TEST N
[2017-03-17] MEDS ORDERED: methylPREDNISolone 40 MG/1 ML VIAL IVP SCH (18:00)
[2017-03-17] MEDS ORDERED: Non-Formulary Drug (Budesonide/Formoterol Fumarate [Symbicort] 2 PUFF) INH SCH (19:00)
[2017-03-17] MEDS ORDERED: GABAPENTIN 300 MG CAPSULE PO SCH (21:00)
[2017-03-17] MEDS ORDERED: BUPROPION 100 MG PO SCH (21:00)
[2017-03-17] MEDS ORDERED: OXYCODONE PO SCH ×2 (21:00)
[2017-03-17] MEDS ORDERED: BuPROPion SR Tab 150 MG TAB PO SCH (21:00)
[2017-03-17] MEDS ORDERED: OMEPRAZOLE 20 MG CAPSULE PO SCH (21:00)
[2017-03-17] MEDS ORDERED: LORazepam 2 MG/1 ML VIAL IVP PRN (21:29)
[2017-03-17] MEDS ORDERED: Dexmedetomidine/NS 100 ML IV SCH (22:30)
[2017-03-17] MEDS ORDERED: Sodium Chloride 0.9% 500 ML ONE (22:36)
[2017-03-18] MEDS: methylPREDNISolone 40 MG/1 ML VIAL IVP SCH ×4 (00:45→19:11)
[2017-03-18] MEDS: NORMAL SALINE 10 ML SYRINGE FLUSH IVP PRN ×2 (00:46→06:41)
[2017-03-18] MEDS: IPRATROPIUM/ALBUTEROL SULFATE 3 ML NEB NEB SCH ×5 (02:48→19:16)
[2017-03-18] MEDS: HYDROmorphone 2 MG/1 ML IVP PRN ×10 (03:17→22:15)
[2017-03-18 05:48] LABS: BASOPHILS # (AUTO) 0 10*3/UL; BASOPHILS % (AUTO) 0 % (0-1); EOSINOPHILS # (AUTO) 0 10*3/UL; EOSINOPHILS % (AUTO) 0 % (0-8); HEMATOCRIT 33.8 % (42.0-52.0); HEMOGLOBIN 10.1 g/dL (14.0-18.0); LYMPHOCYTES # (AUTO) 0.16 10*3/uL; MEAN CORPUSCULAR HEMOGLOBIN 29.3 PG (27-31); MEAN CORPUSCULAR HGB CONC 29.9 g/dL (33-37); MEAN PLATELET VOLUME 9.1 FL (7.4-12.2); MONOCYTES # (AUTO) 0.13 10*3/UL (0.3-0.8); MONOCYTES % (AUTO) 1.9 % (5-15); NEUTROPHILS # (AUTO) 6.63 10*3/UL; NEUTROPHILS % (AUTO) 95.7 % (50-80); RED BLOOD COUNT 3.45 10^6/uL (4.70-6.10)
[2017-03-18 05:53] LABS: PLATELET MORPHOLOGY COMMENT NORMAL MORPHOLOGY (NORM); RBC MORPHOLOGY COMMENT NORMAL MORPHOLOGY (NORM); WBC MORPHOLOGY COMMENT NORMAL MORPHOLOGY (NORM)
[2017-03-18 06:02] LABS: BLOOD UREA NITROGEN 18 mg/dL (7-22); CALCIUM 9.2 mg/dL (8.7-10.7); EST GLOMERULAR FILTRATION > 60 (>60 ml/min/1.73m(2)); MAGNESIUM 1.9 mg/dL (1.6-2.4); SERUM ALBUMIN 3.3 g/dL (3.5-4.8)
[2017-03-18] MEDS: OMEPRAZOLE 20 MG CAPSULE PO SCH ×2 (06:41→17:14)
[2017-03-18 06:56] VITALS: TEMP 97.2
[2017-03-18] MEDS ORDERED: Non-Formulary Drug (Budesonide/Formoterol Fumarate [Symbicort] 2 PUFF) INH SCH (07:00)
[2017-03-18 07:18] LABS: ABG PCO2 67 MMHG (34-38); ABG PH 7.39 (7.35-7.45); ABG PO2 74 MMHG (65-75); COLLECTION SITE RIGHT RADIAL
[2017-03-18 07:19] LABS: ABG BASE EXCESS 15 MMOL/L (-2-2); ABG OXYGEN SATURATION 94 % (90-100); ALLEN TEST Y
[2017-03-18] MEDS: OXYCODONE PO SCH ×4 (08:03→21:05)
[2017-03-18] MEDS: LIDOCAINE 700 MG PATCH TOPICAL SCH ×2 (08:06→15:56)
[2017-03-18] MEDS ORDERED: ENOXAPARIN SODIUM 40 MG/0.4 ML SYRINGE SUBCUT SCH ×2 (09:00)
[2017-03-18] MEDS ORDERED: LIDOCAINE 700 MG PATCH TOPICAL SCH (09:00)
[2017-03-18] MEDS ORDERED: METHADONE 5 MG PO SCH ×3 (09:00)
[2017-03-18] MEDS ORDERED: FLUoxetine 20 MG CAPSULE PO SCH ×2 (09:00)
[2017-03-18] MEDS ORDERED: BUPROPION 100 MG PO SCH (09:00)
[2017-03-18] MEDS ORDERED: GABAPENTIN 300 MG CAPSULE PO SCH (09:00)
[2017-03-18] MEDS ORDERED: POTASSIUM CHLORIDE 20 MEQ TAB PO SCH ×2 (09:00)
[2017-03-18] MEDS ORDERED: FUROSEMIDE 40 MG TABLET PO SCH ×2 (09:00)
--- NOTE | 2017-03-18 10:57 | PDOC(PROG) ---
Interval History: Jim is a very nice and tenacious gentleman who unfortunately is battling to his best end-stage COPD, anxiety and chronic pain. Patient is on steroids and antibiotics .bi PAP has helped him somewhat but he does not like wearing it and is very agitated with it and very uncomfortable despite Ativan. There is a very fine balance between given him too many narcotics and anxiety medication and suppressing his respirations patient understands this and it was decided to start Precedex drip with the eICU doctor. On report from the respiratory therapy patient was really uncomfortable with his BiPAP and did not want to wear it. His ABG today is improved but after discussing the case with the eICU doctor who is a pulmonary dental billing specialist for 20 years and his thoughts are that he would be BiPAP dependent at this time we just breaks for breakfast lunch and dinner. I related this to all family members including and Jim included who is awake his response at present time was that he would like to think about it he also would like another 1 mg of dilaudid he also said that maybe at 1 mg is not enough but he would the meantime to think about being comfortable or being on the BiPAP all the time. At this time is on the regular nasal cannula he does not want to do the BiPAP or Vapotherm at present further action when I know final plans from Jim and rest of the family. I also gave him the option to talk with the pulmonary dental billing specialist through video but they they did not have the need to. All the above was discussed in the presence of the Katelyn RN, general respiratory therapy, Jim's family including his sister in law. Patient is a agitated, short of breath denies chest pain Objective : Data - Labs CBC and BMP: 03/18/17 05:30 03/18/17 05:30 Labs - Last 24 Hours: Laboratory Results 03/17/17 03/17/17 03/18/17 Range/Units 14:17 16:01 05:30 WBC 6.93 (4.8-10.8) 10^3/uL RBC 3.45 L (4.70-6.10) 10^6/uL Hgb 10.1 L (14.0-18.0) g/dL Hct 33.8 L (42.0-52.0) % MCV 98.0 H (80-90) FL MCH 29.3 (27-31) PG MCHC 29.9 L (33-37) g/dL RDW Std Deviation 50.4 H (39-50) fL RDW Coeff of Yumiko 14.7 H (11.5-14.5) % Plt Count 258 (140-350) 10*3/uL MPV 9.1 (7.4-12.2) FL Immature Gran % (Auto) 0.1 (0-5) % Neut % (Auto) 95.7 H (50-80) % Lymph % (Auto) 2.3 L (10-50) % [place] % (Auto) 1.9 L (5-15) % Eos % (Auto) 0 (0-8) % Baso % (Auto) 0 (0-1) % Immature Gran # (Auto) 0.01 10*3/UL Neut # (Auto) 6.63 10*3/UL Lymph # (Auto) 0.16 10*3/uL [place] # (Auto) 0.13 L (0.3-0.8) 10*3/UL Eos # (Auto) 0 10*3/UL Baso # (Auto) 0 10*3/UL WBC Morphology Comment Normal morphology (NORM) Plt Morphology Comment Normal morphology (NORM) RBC Morph Comment Normal morphology (NORM) ABG pH 7.35 7.34 L (7.35-7.45) ABG pCO2 76 H 83 H (34-38) MMHG ABG pO2 87 H 82 H (65-75) MMHG ABG HCO3 42 H 45 H (22-26) ABG Total CO2 44 H 47 H (23-27) MMOL/L ABG O2 Saturation 95 94 (90-100) % ABG Base Excess 16 H 19 H (-2-2) MMOL/L Compa Test Y N FiO2 65% vapotherm 6lpm nc Sodium 136 (135-145) meq/L Potassium 4.1 (3.8-5.2) meq/L Chloride 93 L (98-112) meq/L Carbon Dioxide 40 H (23-33) meq/L Anion Gap 3 L (5-20) BUN 18 (7-22) mg/dL Creatinine 0.5 L (0.70-1.50) mg/dL Estimated GFR > 60 (>60 ml/min/1.73m(2)) BUN/Creatinine Ratio 36.00 H (6-20) Glucose 115 H (78-110) mg/dL Calculated Osmolality 284.0 (267-292) mOsm/kg Calcium 9.2 (8.7-10.7) mg/dL Phosphorus 3.0 (2.4-4.3) mg/dl Magnesium 1.9 (1.6-2.4) mg/dL Total Bilirubin 0.3 (0.3-1.2) mg/dL AST 28 (21-57) IU/L ALT 34 (21-72) IU/L Alkaline Phosphatase 96 (38-126) IU/L Total Protein 5.9 L (6.1-8.0) g/dL Albumin 3.3 L (3.5-4.8) g/dL Globulin 2.6 (2.50-4.10) g/dL Albumin/Globulin Ratio 1.20 L (1.3-2.0) mg/g 03/18/17 Range/Units 07:06 WBC (4.8-10.8) 10^3/uL RBC (4.70-6.10) 10^6/uL Hgb (14.0-18.0) g/dL Hct (42.0-52.0) % MCV (80-90) FL MCH (27-31) PG MCHC (33-37) g/dL RDW Std Deviation (39-50) fL RDW Coeff of Yumiko (11.5-14.5) % Plt Count (140-350) 10*3/uL MPV (7.4-12.2) FL Immature Gran % (Auto) (0-5) % Neut % (Auto) (50-80) % Lymph % (Auto) (10-50) % [place] % (Auto) (5-15) % Eos % (Auto) (0-8) % Baso % (Auto) (0-1) % Immature Gran # (Auto) 10*3/UL Neut # (Auto) 10*3/UL Lymph # (Auto) 10*3/uL [place] # (Auto) (0.3-0.8) 10*3/UL Eos # (Auto) 10*3/UL Baso # (Auto) 10*3/UL WBC Morphology Comment (NORM) Plt Morphology Comment (NORM) RBC Morph Comment (NORM) ABG pH 7.39 (7.35-7.45) ABG pCO2 67 H (34-38) MMHG ABG pO2 74 (65-75) MMHG ABG HCO3 40 H (22-26) ABG Total CO2 42 H (23-27) MMOL/L ABG O2 Saturation 94 (90-100) % ABG Base Excess 15 H (-2-2) MMOL/L Compa Test Y FiO2 5 l/m cannula Sodium (135-145) meq/L Potassium (3.8-5.2) meq/L Chloride (98-112) meq/L Carbon Dioxide (23-33) meq/L Anion Gap (5-20) BUN (7-22) mg/dL Creatinine (0.70-1.50) mg/dL Estimated GFR (>60 ml/min/1.73m(2)) BUN/Creatinine Ratio (6-20) Glucose (78-110) mg/dL Calculated Osmolality (267-292) mOsm/kg Calcium (8.7-10.7) mg/dL Phosphorus (2.4-4.3) mg/dl Magnesium (1.6-2.4) mg/dL Total Bilirubin (0.3-1.2) mg/dL AST (21-57) IU/L ALT (21-72) IU/L Alkaline Phosphatase (38-126) IU/L Total Protein (6.1-8.0) g/dL Albumin (3.5-4.8) g/dL Globulin (2.50-4.10) g/dL Albumin/Globulin Ratio (1.3-2.0) mg/g Objective : Exam - General General Appearance: Cooperative, Mild Distress - Respiratory Respiratory Exam: Decreased Breath Sounds Additional Respiratory Exam Details: A decent air movement on the left upper lobe otherwise diminished everywhere else - Cardiovascular Cardiovascular Exam: RRR, No Murmur, No Clicks - Extremities Extremities Exam: No Clubbing Present, No Edema Present, No Cyanosis Present - Neurological Neurological Exam: Alert, No Facial Droop, Speech Intact / Clear - Psychiatric Psychiatric Exam: Anxious Assessment and Plan - Patient Problems (1) COPD exacerbation Current Visit: No Status: Acute Comment: Please see HPI for plan (2) Broken ribs Current Visit: No Status: Acute (3) Chronic pain syndrome Current Visit: No Status: Chronic
[2017-03-18] MEDS ORDERED: Levofloxacin 750mg (Premix) 750 MG in Dextrose 1 BAG IV SCH (16:00)
[2017-03-18 16:23] LABS: ABG PCO2 61 MMHG (34-38); ABG PH 7.41 (7.35-7.45); ABG PO2 74 MMHG (65-75); COLLECTION SITE RIGHT RADIAL
[2017-03-18 16:24] LABS: ABG BASE EXCESS 13 MMOL/L (-2-2); ABG OXYGEN SATURATION 94 % (90-100); ALLEN TEST YES
[2017-03-18] MEDS ORDERED: Midazolam Inj 100 MG in Sodium Chloride 0.9% 80 ML IV SCH (17:30)
[2017-03-18] MEDS ORDERED: fentaNYL Inj 100 MCG/2 ML VIAL IVP PRN (17:31)
[2017-03-18] MEDS ORDERED: MIDAZOLAM HCL 50 MG/10 ML VIAL ONE (17:54)
[2017-03-18] MEDS: LORazepam 2 MG/1 ML VIAL IVP PRN ×3 (18:55→22:15)
[2017-03-18] MEDS ORDERED: LORazepam 2 MG/1 ML VIAL ONE (18:57)
[2017-03-18] MEDS ORDERED: HYDROmorphone 2 MG/1 ML IVP PRN ×2 (19:02→19:15)
[2017-03-18] MEDS ORDERED: Patch Removal PATCH TRANSDERM SCH ×2 (21:00)
[2017-03-19] MEDS: IPRATROPIUM/ALBUTEROL SULFATE 3 ML NEB NEB SCH ×3 (00:06→10:12)
[2017-03-19] MEDS: HYDROmorphone 2 MG/1 ML IVP PRN ×8 (02:30→17:09)
[2017-03-19] MEDS: LORazepam 2 MG/1 ML VIAL IVP PRN ×9 (02:30→17:09)
[2017-03-19 06:33] VITALS: RESP 16
[2017-03-19] MEDS ORDERED: Morphine Sulfate Inj 250 MG in Sodium Chloride 0.9% 245 ML IV SCH ×2 (09:30→11:59)
[2017-03-19 10:21] LABS: ANTISTREP-O TITER 40 IU/mL (0 - 530)
[2017-03-19] MEDS ORDERED: NORMAL SALINE 10 ML SYRINGE FLUSH IVP PRN (11:59)
--- NOTE | 2017-03-19 15:43 | PDOC(PROG) ---
Date and Time of Service: 03/19/2017, 1540 Interval History: Patient seen and evaluated earlier. History is obtained from the patient's primarily as he is in the end stages of his COPD and is currently on a morphine drip. He has been resting comfortably. Objective : Data - Labs CBC and BMP: 03/18/17 05:30 03/18/17 05:30 Labs - Last 24 Hours: Laboratory Results 03/17/17 03/18/17 Range/Units 05:45 16:11 ABG pH 7.41 (7.35-7.45) ABG pCO2 61 H (34-38) MMHG ABG pO2 74 (65-75) MMHG ABG HCO3 38 H (22-26) ABG Total CO2 40 H (23-27) MMOL/L ABG O2 Saturation 94 (90-100) % ABG Base Excess 13 H (-2-2) MMOL/L Compa Test Yes FiO2 5l/m cannula Ur L.pneumophila Ag Negative (Negative) Anti-Streptolysin Titr 40 (0 - 530) IU/mL Anti-DNase B (Strep) 128 (0 - 300) U/mL Objective : Exam - General General Appearance: No Acute Distress Additional General Exam Details: Vital Signs - Last Taken Temperature 97.2 F 03/18/17 06:51 Pulse Rate 96 03/19/17 06:19 Respiratory Rate 16 03/19/17 06:19 Blood Pressure 149/107 03/18/17 21:57 Pulse Ox 96 03/19/17 06:19 - Respiratory Respiratory Exam: Decreased Breath Sounds - Cardiovascular Cardiovascular Exam: RRR, No Murmur, No Clicks, No Gallops, No Rubs, No JVD - GI/Abdominal GI/Abdominal Exam: Normal Bowel Sounds, Non Tender, Non Distended, Soft - Extremities Extremities Exam: No Edema Present, No Cyanosis Present, Clubbing Present Assessment and Plan - Patient Problems (1) End stage COPD Current Visit: Yes Status: Acute (2) Hypercapnic respiratory failure Current Visit: Yes Status: Acute Qualifiers: Chronicity: acute on chronic Qualified Description: Acute on chronic respiratory failure with hypercapnia Qualifier Code(s): (J96.22) Acute and chronic respiratory failure with hypercapnia (3) Chronic pain syndrome Current Visit: Yes Status: Chronic (4) Depression with anxiety Current Visit: Yes Status: Chronic - Assessment / Plan Additional Assessment/Plan Details: The patient and the family realized that despite any medical treatments that we would have to offer, that he will regardless of anything we have to offer. The family had requested that we treat primary symptoms, we are doing that with morphine, and Ativan. The patient is currently on a morphine drip, and seems comfortable at this time. He has a very high tolerance to opiates, and may require more morphine than a typical patient. Ativan seems to be helping anxiousness. The plan will be to continue to treat primary symptoms in a patient that is in an end-of-life situation with end-stage COPD that were no longer responding to conventional medical therapies or aggressive therapies.
--- NOTE | 2017-03-19 17:51 | DCSUMMARY ---
Hospitalization Summary Admit Date: 03/16/17 Discharge Date: 03/19/17 Primary Diagnosis:: end-stage chronic objective pulmonary disease Secondary Diagnosis:: Acute on chronic hypercapnic respiratory failure Hospital Course: This very pleasant 61-year-old male with end-stage COPD who presented with symptoms consistent with a COPD exacerbation. He had significant hypercapnia. In fact was so severe, that really BiPAP was his only option at improving this. Initially he was trialed on Vapotherm, but he did not respond to this. The patient did not want intubation. He was discussed with the patient and the family what the best options would be. The best option was to go on BiPAP, however [facility] that the patient would probably be BiPAP dependent except for breaks at mealtimes. Eventually, the patient and the family decided that he should be comfort care in the sense that they wanted primary symptoms treated pain and discomfort. The patient was placed on opiates for pain control, but he required large doses due to his significant tolerance with his chronic pain syndrome and significantly high doses of opiates at home. The patient succumbed to the hypercapnia and COPD, end-stage, at 5:25 PM on 03/19/2017. His family was present and he peacefully and did not experience any pain. On examination: Pupils were fixed, dilated, and unresponsive to light. There were no spontaneous respirations. There were no breath sounds on auscultation. There were no heart sounds on auscultation. There was no palpable pulse. Exam - Vitals Vital Signs: Vital Signs Temperature 97.2 F Temperature Source Temporal Artery Scan Pulse Rate [Pulse Oximeter 96 Right] Pulse Rate 106 Respiratory Rate 16 Blood Pressure [Left Arm] 149/107 Blood Pressure [Right Arm] 127/93 Blood Pressure 128/46 Pulse Ox 96 Oxygen Flow Rate 5 Oxygen Delivery Method Nasal Cannula Height 5 ft 4 in Weight 161 lb 14.4 oz Data Perinent Studies: Laboratory Results 03/16/17 03/16/17 03/16/17 Range/Units 13:54 14:00 14:03 WBC 12.67 H (4.8-10.8) 10^3/uL RBC 3.80 L (4.70-6.10) 10^6/uL Hgb 11.2 L (14.0-18.0) g/dL Hct 38.2 L (42.0-52.0) % MCV 100.5 H (80-90) FL MCH 29.5 (27-31) PG MCHC 29.3 L (33-37) g/dL RDW Std Deviation 55.6 H (39-50) fL RDW Coeff of Yumiko 15.3 H (11.5-14.5) % Plt Count 282 (140-350) 10*3/uL MPV 9.1 (7.4-12.2) FL Immature Gran % (Auto) 0.4 (0-5) % Neut % (Auto) 93.9 H (50-80) % Lymph % (Auto) 2.1 L (10-50) % Power % (Auto) 3.2 L (5-15) % Eos % (Auto) 0.2 (0-8) % Baso % (Auto) 0.2 (0-1) % Immature Gran # (Auto) 0.05 10*3/UL Neut # (Auto) 11.89 10*3/UL Lymph # (Auto) 0.27 10*3/uL Power # (Auto) 0.41 (0.3-0.8) 10*3/UL Eos # (Auto) 0.03 10*3/UL Baso # (Auto) 0.02 10*3/UL WBC Morphology Comment Normal morphology (NORM) Plt Morphology Comment Normal morphology (NORM) RBC Morph Comment Normal morphology (NORM) D-Dimer (0.00-0.59) mg/L ABG pH (7.35-7.45) ABG pCO2 (34-38) MMHG ABG pO2 (65-75) MMHG ABG HCO3 (22-26) ABG Total CO2 (23-27) MMOL/L ABG O2 Saturation (90-100) % ABG Base Excess (-2-2) MMOL/L Compa Test VBG pH 7.39 (7.32-7.42) VBG pCO2 73 H (45-55) mmHg VBG HCO3 44 H (22-26) mmol/L VBG Base Excess 19 H (-2-2) MMOL/L FiO2 Sodium (135-145) meq/L Potassium (3.8-5.2) meq/L Chloride (98-112) meq/L Carbon Dioxide (23-33) meq/L Anion Gap (5-20) BUN (7-22) mg/dL Creatinine (0.70-1.50) mg/dL Estimated GFR (>60 ml/min/1.73m(2)) BUN/Creatinine Ratio (6-20) Glucose (78-110) mg/dL Calculated Osmolality (267-292) mOsm/kg Lactic Acid (0.70-2.10) MMOL/L Calcium (8.7-10.7) mg/dL Phosphorus (2.4-4.3) mg/dl Magnesium (1.6-2.4) mg/dL Total Bilirubin (0.3-1.2) mg/dL AST (21-57) IU/L ALT (21-72) IU/L Alkaline Phosphatase (38-126) IU/L C-Reactive Protein (0.0-0.9) mg/dL NT-Pro-B Natriuret Pep 118 (0-125) PG/ML Total Protein (6.1-8.0) g/dL Albumin (3.5-4.8) g/dL Globulin (2.50-4.10) g/dL Albumin/Globulin Ratio (1.3-2.0) mg/g Ur L.pneumophila Ag (Negative) Anti-Streptolysin Titr (0 - 530) IU/mL Anti-DNase B (Strep) (0 - 300) U/mL 03/16/17 03/16/17 03/16/17 Range/Units 14:10 14:48 15:39 WBC (4.8-10.8) 10^3/uL RBC (4.70-6.10) 10^6/uL Hgb (14.0-18.0) g/dL Hct (42.0-52.0) % MCV (80-90) FL MCH (27-31) PG MCHC (33-37) g/dL RDW Std Deviation (39-50) fL RDW Coeff of Yumiko (11.5-14.5) % Plt Count (140-350) 10*3/uL MPV (7.4-12.2) FL Immature Gran % (Auto) (0-5) % Neut % (Auto) (50-80) % Lymph % (Auto) (10-50) % Power % (Auto) (5-15) % Eos % (Auto) (0-8) % Baso % (Auto) (0-1) % Immature Gran # (Auto) 10*3/UL Neut # (Auto) 10*3/UL Lymph # (Auto) 10*3/uL Power # (Auto) (0.3-0.8) 10*3/UL Eos # (Auto) 10*3/UL Baso # (Auto) 10*3/UL WBC Morphology Comment (NORM) Plt Morphology Comment (NORM) RBC Morph Comment (NORM) D-Dimer 1.98 H (0.00-0.59) mg/L ABG pH 7.27 L 7.22 L (7.35-7.45) ABG pCO2 100 H 109 H (34-38) MMHG ABG pO2 72 78 H (65-75) MMHG ABG HCO3 45 H 44 H (22-26) ABG Total CO2 48 H 47 H (23-27) MMOL/L ABG O2 Saturation 90 90 (90-100) % ABG Base Excess 18 H 16 H (-2-2) MMOL/L Compa Test Y N VBG pH (7.32-7.42) VBG pCO2 (45-55) mmHg VBG HCO3 (22-26) mmol/L VBG Base Excess (-2-2) MMOL/L FiO2 9lpm sm 65% vapotherm Sodium 137 (135-145) meq/L Potassium 4.0 (3.8-5.2) meq/L Chloride 89 L (98-112) meq/L Carbon Dioxide 41 H (23-33) meq/L Anion Gap 7 (5-20) BUN 16 (7-22) mg/dL Creatinine 0.6 L (0.70-1.50) mg/dL Estimated GFR > 60 (>60 ml/min/1.73m(2)) BUN/Creatinine Ratio 26.66 H (6-20) Glucose 183 H (78-110) mg/dL Calculated Osmolality 289.0 (267-292) mOsm/kg Lactic Acid 1.0 (0.70-2.10) MMOL/L Calcium 8.6 L (8.7-10.7) mg/dL Phosphorus (2.4-4.3) mg/dl Magnesium 1.9 (1.6-2.4) mg/dL Total Bilirubin 0.3 (0.3-1.2) mg/dL AST 31 (21-57) IU/L ALT 31 (21-72) IU/L Alkaline Phosphatase 118 (38-126) IU/L C-Reactive Protein 3.1 H (0.0-0.9) mg/dL NT-Pro-B Natriuret Pep (0-125) PG/ML Total Protein 6.2 (6.1-8.0) g/dL Albumin 3.5 (3.5-4.8) g/dL Globulin 2.7 (2.50-4.10) g/dL Albumin/Globulin Ratio 1.20 L (1.3-2.0) mg/g Ur L.pneumophila Ag (Negative) Anti-Streptolysin Titr (0 - 530) IU/mL Anti-DNase B (Strep) (0 - 300) U/mL 03/16/17 03/16/17 03/17/17 Range/Units 16:25 18:40 04:35 WBC (4.8-10.8) 10^3/uL RBC (4.70-6.10) 10^6/uL Hgb (14.0-18.0) g/dL Hct (42.0-52.0) % MCV (80-90) FL MCH (27-31) PG MCHC (33-37) g/dL RDW Std Deviation (39-50) fL RDW Coeff of Yumiko (11.5-14.5) % Plt Count (140-350) 10*3/uL MPV (7.4-12.2) FL Immature Gran % (Auto) (0-5) % Neut % (Auto) (50-80) % Lymph % (Auto) (10-50) % Power % (Auto) (5-15) % Eos % (Auto) (0-8) % Baso % (Auto) (0-1) % Immature Gran # (Auto) 10*3/UL Neut # (Auto) 10*3/UL Lymph # (Auto) 10*3/uL Power # (Auto) (0.3-0.8) 10*3/UL Eos # (Auto) 10*3/UL Baso # (Auto) 10*3/UL WBC Morphology Comment (NORM) Plt Morphology Comment (NORM) RBC Morph Comment (NORM) D-Dimer (0.00-0.59) mg/L ABG pH 7.27 L 7.26 L (7.35-7.45) ABG pCO2 94 H 91 H (34-38) MMHG ABG pO2 80 H 94 H (65-75) MMHG ABG HCO3 43 H 41 H (22-26) ABG Total CO2 46 H 44 H (23-27) MMOL/L ABG O2 Saturation 93 95 (90-100) % ABG Base Excess 16 H 14 H (-2-2) MMOL/L Compa Test N pass VBG pH (7.32-7.42) VBG pCO2 (45-55) mmHg VBG HCO3 (22-26) mmol/L VBG Base Excess (-2-2) MMOL/L FiO2 65% vapotherm 50% via bipap Sodium 136 (135-145) meq/L Potassium 4.8 (3.8-5.2) meq/L Chloride 94 L (98-112) meq/L Carbon Dioxide 37 H (23-33) meq/L Anion Gap 5 (5-20) BUN 17 (7-22) mg/dL Creatinine 0.5 L (0.70-1.50) mg/dL Estimated GFR > 60 (>60 ml/min/1.73m(2)) BUN/Creatinine Ratio 34.00 H (6-20) Glucose 129 H (78-110) mg/dL Calculated Osmolality 285.0 (267-292) mOsm/kg Lactic Acid (0.70-2.10) MMOL/L Calcium 8.7 (8.7-10.7) mg/dL Phosphorus (2.4-4.3) mg/dl Magnesium (1.6-2.4) mg/dL Total Bilirubin (0.3-1.2) mg/dL AST (21-57) IU/L ALT (21-72) IU/L Alkaline Phosphatase (38-126) IU/L C-Reactive Protein (0.0-0.9) mg/dL NT-Pro-B Natriuret Pep (0-125) PG/ML Total Protein (6.1-8.0) g/dL Albumin (3.5-4.8) g/dL Globulin (2.50-4.10) g/dL Albumin/Globulin Ratio (1.3-2.0) mg/g Ur L.pneumophila Ag (Negative) Anti-Streptolysin Titr (0 - 530) IU/mL Anti-DNase B (Strep) (0 - 300) U/mL 03/17/17 03/17/17 03/17/17 Range/Units 05:45 07:58 14:17 WBC (4.8-10.8) 10^3/uL RBC (4.70-6.10) 10^6/uL Hgb (14.0-18.0) g/dL Hct (42.0-52.0) % MCV (80-90) FL MCH (27-31) PG MCHC (33-37) g/dL RDW Std Deviation (39-50) fL RDW Coeff of Yumiko (11.5-14.5) % Plt Count (140-350) 10*3/uL MPV (7.4-12.2) FL Immature Gran % (Auto) (0-5) % Neut % (Auto) (50-80) % Lymph % (Auto) (10-50) % Power % (Auto) (5-15) % Eos % (Auto) (0-8) % Baso % (Auto) (0-1) % Immature Gran # (Auto) 10*3/UL Neut # (Auto) 10*3/UL Lymph # (Auto) 10*3/uL Power # (Auto) (0.3-0.8) 10*3/UL Eos # (Auto) 10*3/UL Baso # (Auto) 10*3/UL WBC Morphology Comment (NORM) Plt Morphology Comment (NORM) RBC Morph Comment (NORM) D-Dimer (0.00-0.59) mg/L ABG pH 7.40 7.35 (7.35-7.45) ABG pCO2 64 H 76 H (34-38) MMHG ABG pO2 81 H 87 H (65-75) MMHG ABG HCO3 39.7 H 42 H (22-26) ABG Total CO2 42 H 44 H (23-27) MMOL/L ABG O2 Saturation 95 95 (90-100) % ABG Base Excess 15 H 16 H (-2-2) MMOL/L Compa Test Y Y VBG pH (7.32-7.42) VBG pCO2 (45-55) mmHg VBG HCO3 (22-26) mmol/L VBG Base Excess (-2-2) MMOL/L FiO2 50% bipap 65% vapotherm Sodium (135-145) meq/L Potassium (3.8-5.2) meq/L Chloride (98-112) meq/L Carbon Dioxide (23-33) meq/L Anion Gap (5-20) BUN (7-22) mg/dL Creatinine (0.70-1.50) mg/dL Estimated GFR (>60 ml/min/1.73m(2)) BUN/Creatinine Ratio (6-20) Glucose (78-110) mg/dL Calculated Osmolality (267-292) mOsm/kg Lactic Acid (0.70-2.10) MMOL/L Calcium (8.7-10.7) mg/dL Phosphorus (2.4-4.3) mg/dl Magnesium (1.6-2.4) mg/dL Total Bilirubin (0.3-1.2) mg/dL AST (21-57) IU/L ALT (21-72) IU/L Alkaline Phosphatase (38-126) IU/L C-Reactive Protein (0.0-0.9) mg/dL NT-Pro-B Natriuret Pep (0-125) PG/ML Total Protein (6.1-8.0) g/dL Albumin (3.5-4.8) g/dL Globulin (2.50-4.10) g/dL Albumin/Globulin Ratio (1.3-2.0) mg/g Ur L.pneumophila Ag Negative (Negative) Anti-Streptolysin Titr 40 (0 - 530) IU/mL Anti-DNase B (Strep) 128 (0 - 300) U/mL 03/17/17 03/18/17 03/18/17 Range/Units 16:01 05:30 07:06 WBC 6.93 (4.8-10.8) 10^3/uL RBC 3.45 L (4.70-6.10) 10^6/uL Hgb 10.1 L (14.0-18.0) g/dL Hct 33.8 L (42.0-52.0) % MCV 98.0 H (80-90) FL MCH 29.3 (27-31) PG MCHC 29.9 L (33-37) g/dL RDW Std Deviation 50.4 H (39-50) fL RDW Coeff of Yumiko 14.7 H (11.5-14.5) % Plt Count 258 (140-350) 10*3/uL MPV 9.1 (7.4-12.2) FL Immature Gran % (Auto) 0.1 (0-5) % Neut % (Auto) 95.7 H (50-80) % Lymph % (Auto) 2.3 L (10-50) % Power % (Auto) 1.9 L (5-15) % Eos % (Auto) 0 (0-8) % Baso % (Auto) 0 (0-1) % Immature Gran # (Auto) 0.01 10*3/UL Neut # (Auto) 6.63 10*3/UL Lymph # (Auto) 0.16 10*3/uL Power # (Auto) 0.13 L (0.3-0.8) 10*3/UL Eos # (Auto) 0 10*3/UL Baso # (Auto) 0 10*3/UL WBC Morphology Comment Normal morphology (NORM) Plt Morphology Comment Normal morphology (NORM) RBC Morph Comment Normal morphology (NORM) D-Dimer (0.00-0.59) mg/L ABG pH 7.34 L 7.39 (7.35-7.45) ABG pCO2 83 H 67 H (34-38) MMHG ABG pO2 82 H 74 (65-75) MMHG ABG HCO3 45 H 40 H (22-26) ABG Total CO2 47 H 42 H (23-27) MMOL/L ABG O2 Saturation 94 94 (90-100) % ABG Base Excess 19 H 15 H (-2-2) MMOL/L Compa Test N Y VBG pH (7.32-7.42) VBG pCO2 (45-55) mmHg VBG HCO3 (22-26) mmol/L VBG Base Excess (-2-2) MMOL/L FiO2 6lpm nc 5 l/m cannula Sodium 136 (135-145) meq/L Potassium 4.1 (3.8-5.2) meq/L Chloride 93 L (98-112) meq/L Carbon Dioxide 40 H (23-33) meq/L Anion Gap 3 L (5-20) BUN 18 (7-22) mg/dL Creatinine 0.5 L (0.70-1.50) mg/dL Estimated GFR > 60 (>60 ml/min/1.73m(2)) BUN/Creatinine Ratio 36.00 H (6-20) Glucose 115 H (78-110) mg/dL Calculated Osmolality 284.0 (267-292) mOsm/kg Lactic Acid (0.70-2.10) MMOL/L Calcium 9.2 (8.7-10.7) mg/dL Phosphorus 3.0 (2.4-4.3) mg/dl Magnesium 1.9 (1.6-2.4) mg/dL Total Bilirubin 0.3 (0.3-1.2) mg/dL AST 28 (21-57) IU/L ALT 34 (21-72) IU/L Alkaline Phosphatase 96 (38-126) IU/L C-Reactive Protein (0.0-0.9) mg/dL NT-Pro-B Natriuret Pep (0-125) PG/ML Total Protein 5.9 L (6.1-8.0) g/dL Albumin 3.3 L (3.5-4.8) g/dL Globulin 2.6 (2.50-4.10) g/dL Albumin/Globulin Ratio 1.20 L (1.3-2.0) mg/g Ur L.pneumophila Ag (Negative) Anti-Streptolysin Titr (0 - 530) IU/mL Anti-DNase B (Strep) (0 - 300) U/mL 03/18/17 Range/Units 16:11 WBC (4.8-10.8) 10^3/uL RBC (4.70-6.10) 10^6/uL Hgb (14.0-18.0) g/dL Hct (42.0-52.0) % MCV (80-90) FL MCH (27-31) PG MCHC (33-37) g/dL RDW Std Deviation (39-50) fL RDW Coeff of Yumiko (11.5-14.5) % Plt Count (140-350) 10*3/uL MPV (7.4-12.2) FL Immature Gran % (Auto) (0-5) % Neut % (Auto) (50-80) % Lymph % (Auto) (10-50) % Power % (Auto) (5-15) % Eos % (Auto) (0-8) % Baso % (Auto) (0-1) % Immature Gran # (Auto) 10*3/UL Neut # (Auto) 10*3/UL Lymph # (Auto) 10*3/uL Power # (Auto) (0.3-0.8) 10*3/UL Eos # (Auto) 10*3/UL Baso # (Auto) 10*3/UL WBC Morphology Comment (NORM) Plt Morphology Comment (NORM) RBC Morph Comment (NORM) D-Dimer (0.00-0.59) mg/L ABG pH 7.41 (7.35-7.45) ABG pCO2 61 H (34-38) MMHG ABG pO2 74 (65-75) MMHG ABG HCO3 38 H (22-26) ABG Total CO2 40 H (23-27) MMOL/L ABG O2 Saturation 94 (90-100) % ABG Base Excess 13 H (-2-2) MMOL/L Compa Test Yes VBG pH (7.32-7.42) VBG pCO2 (45-55) mmHg VBG HCO3 (22-26) mmol/L VBG Base Excess (-2-2) MMOL/L FiO2 5l/m cannula Sodium (135-145) meq/L Potassium (3.8-5.2) meq/L Chloride (98-112) meq/L Carbon Dioxide (23-33) meq/L Anion Gap (5-20) BUN (7-22) mg/dL Creatinine (0.70-1.50) mg/dL Estimated GFR (>60 ml/min/1.73m(2)) BUN/Creatinine Ratio (6-20) Glucose (78-110) mg/dL Calculated Osmolality (267-292) mOsm/kg Lactic Acid (0.70-2.10) MMOL/L Calcium (8.7-10.7) mg/dL Phosphorus (2.4-4.3) mg/dl Magnesium (1.6-2.4) mg/dL Total Bilirubin (0.3-1.2) mg/dL AST (21-57) IU/L ALT (21-72) IU/L Alkaline Phosphatase (38-126) IU/L C-Reactive Protein (0.0-0.9) mg/dL NT-Pro-B Natriuret Pep (0-125) PG/ML Total Protein (6.1-8.0) g/dL Albumin (3.5-4.8) g/dL Globulin (2.50-4.10) g/dL Albumin/Globulin Ratio (1.3-2.0) mg/g Ur L.pneumophila Ag (Negative) Anti-Streptolysin Titr (0 - 530) IU/mL Anti-DNase B (Strep) (0 - 300) U/mL Patient Problems - Patient Problem List (1) End stage COPD Current Visit: Yes Status: Acute (2) Hypercapnic respiratory failure Current Visit: Yes Status: Acute Qualifiers: Chronicity: acute on chronic Qualified Description: Acute on chronic respiratory failure with hypercapnia Qualifier Code(s): (J96.22) Acute and chronic respiratory failure with hypercapnia (3) Chronic pain syndrome Current Visit: Yes Status: Chronic (4) Depression with anxiety Current Visit: Yes Status: Chronic
== END 2017-03-19 19:26 | disposition expired | DRG 999 ==
LOC: ER 13:23 → ICU 15:06 → UNDOADMIN 15:19 → MED/SURG 03-17 10:50 → ICU 03-17 22:24 → MED/SURG 03-19 11:33
PROVIDERS: ADMIT Internal Medicine; ATTEND Family Medicine
DX: J44.9 Chronic obstructive pulmonary disease, unspecified (principal); J96.20 Acute and chronic respiratory failure, unspecified whether with hypoxia or hypercapnia; S22.39XA Fracture of one rib, unspecified side, initial encounter for closed fracture; F41.8 Other specified anxiety disorders
CPT/HCPCS: 36415; 36600; 71020; 80048; 80053; 82803; 83605; 83735; 83880; 84100; 85025; 85379; 86060; 86140; 86215; 87040; 87899; 94640; 94660; 94761; 96365; 99291; 99292; J1170; J1650; J2060; J2250; J2270; J2920; J3010; J7030; J7040; J7050; J7620; S0109